=== PATIENT | male | born 1965 | race African-American/Black ===

== ENCOUNTER 2023-10-05 06:28 | Day surgery (SDC) | payer OTHER, SELFPAY ==
[2023-10-05 08:26] LABS: Glucose - Point of Care 121 mg/dl (70-99)
== END 2023-10-10 01:00 ==
LOC: GI 06:28
PROVIDERS: ATTENDING PHYSICIAN Internal Medicine Gastroenterology; FAMILY PHYSICIAN Family Medicine
DX: I85.00 Esophageal varices without bleeding (principal)
CPT/HCPCS: 43235; 82962

== ENCOUNTER → 2023-10-12 08:53 | Outpatient (REF) | payer OTHER, SELFPAY | LOC: HWRAD 08:53 | PROVIDERS: ATTENDING PHYSICIAN Internal Medicine Gastroenterology; FAMILY PHYSICIAN Family Medicine | DX: K70.30 Alcoholic cirrhosis of liver without ascites (principal) | CPT/HCPCS: 76700 ==

== ENCOUNTER 2024-04-03 07:44 | Inpatient (IN) | payer OTHER, SELFPAY ==
[2024-04-03] VITALS (33 sets, daily range): BP systolic 100–145; BP diastolic 54–105; BMI 27.1; BMI 27.2
[2024-04-03 04:42] LABS: Glucose - Point of Care 471 mg/dl (70-99)
[2024-04-03 05:01] LABS: Venous Blood Gas B.E. -8.5 mmol/L (-4 to +4); Venous Blood Gas HCO3 15.2 mmol/L (22-27); Venous Blood Gas O2 Sat % 99.1 %; Venous Blood Gas pCO2 24 mmHg (35-48); Venous Blood Gas pH 7.41 (7.32-7.43); Venous Blood Gas pO2 118 mmHg (30-50)
[2024-04-03 05:02] LABS: ALT (SGPT) 34 U/L (0-50); AST (SGOT) 42 U/L (17-59); Albumin 2.9 g/dl (3.5-5.0); Alkaline Phosphatase 43 U/L (38-126); Blood Urea Nitrogen 34 mg/dl (9-20); Calcium 8.3 mg/dl (8.4-10.2); Carbon Dioxide 14 mmol/L (22-30); Chloride 106 mmol/L (98-107); Direct Bilirubin 0.2 mg/dl (0.0-0.4); Estimated Creatinine Clearance 87 ml/min; Glucose 429 mg/dl (70-99); Potassium 4.3 mmol/L (3.5-5.1); Sodium 135 mmol/L (135-145); Total Bilirubin 0.6 mg/dl (0.2-1.3); Total Protein 5.9 g/dl (6.3-8.2); eGFR > 60.00
[2024-04-03 05:03] LABS: INR 1.52; PT 18.4 Sec (11.4-14.6)
[2024-04-03 05:04] LABS: APTT 28.5 Sec (23.4-35.0)
[2024-04-03 05:12] LABS: Urine Albumin Negative (Neg - Trace); Urine Bilirubin Negative (Negative); Urine Character Clear (Clear); Urine Color Yellow; Urine Glucose 3+ (Negative); Urine Ketone 1+ (Negative); Urine Leukocyte Negative (Negative); Urine Nitrite Negative (Negative); Urine Occult Blood Negative (Negative); Urine Specific Gravity 1.015 (<1.030); Urine Urobilinogen Negative (Neg - 1+)
[2024-04-03] MEDS: NSS 1000 IV ×2 (05:17→05:19)
[2024-04-03 05:18] LABS: % Basophils 0.3 % (0-2); % Eosinophils 0.8 % (0-6); % Immature Granulocytes 2.1 % (0-0.5); % Lymphocytes 25.8 % (20.5-51.1); % Monocytes 9.6 % (1.7-9.3); % Neutrophils 61.4 % (42.2-75.2); Absolute Eosinophils 0.1 10^3/uL (0-0.7); Absolute Immature Granulocytes 0.2 10^3/uL (0-0.05); Absolute Lymphocytes 2.3 10^3/uL (1.2-3.4); Absolute Monocytes 0.9 10^3/uL (0.1-0.6); Absolute Neutrophils 5.4 10^3/uL (1.4-6.5); Hematocrit 18.3 % (39.0-52.0); Hemoglobin 6.4 g/dL (13.0-18.0); Mean Corpuscular Hgb 30.6 pg (27.0-31.0); Mean Corpuscular Volume 87.6 fL (80.0-94.0); Mean Platelet Volume 12.4 fL (7.4-10.4); Nucleated Red Blood Cells % 1.6 % (-); Platelet Count 115 10^3/uL (130-400); Red Blood Cell Count 2.09 10^6/uL (4.70-6.10); Red Cell Dist. Width 14.2 % (11.5-14.5); White Blood Cell Count 8.9 10^3/uL (4.8-10.8)
[2024-04-03] MEDS: PROTONIX IV 80 MG IV (05:18)
[2024-04-03] MEDS: SANDOSTATIN 50 MCG IV (05:18)
[2024-04-03] MEDS: PROTONIX 100 IV (05:18)
[2024-04-03 05:34] LABS: Alcohol None Detected
[2024-04-03 05:37] LABS: B-Hydroxybutyrate 0.48 mmol/L (0.02-0.27); Lactic Acid 6.5 mmol/L (0.7-2.0)
--- NOTE | 2024-04-03 06:00 | ED.GENMED ---
History of Present Illness
General
Chief Complaint: Vomiting Blood
Source: patient and previous hospital records (Previous hospitalization for similar event October 2021. Multiple previous upper endoscopies most recently October 2023 showing grade 1 small esophageal varices.)
Exam Limitations: none
Time Seen by Provider: 04/03/24 04:46
Nursing documentation reviewed up to this point in time: agreed with
History of Present Illness
History of Present Illness:
This is a 58-year-old gentleman with history of prior alcohol abuse, cirrhosis, esophageal varices with previous esophageal bleeding, significant anemia requiring blood transfusions and hospitalization July 2022. He also has history of HIV,
adult onset diabetes. During hospitalization July 2022 he was started on insulin but admits to poor compliance with follow-up with PCP, had not been using glucometer but did continue insulin regimen that was initiated July 2022 until he
stopped all of his medications in January of this year.
He has been compliant with GI, follow-up surveillance endoscopies most recently October 2023 showing grade 1 small esophageal varices, nonbleeding. Unfortunately due to stress and other issues he discontinued all of his medications January of this year
taking a 'drug holiday'
He admits to sporadic alcohol use, last consumption a few days ago.
He complains of passing black tarry stools 2 days ago with onset of lightheadedness/dizziness yesterday while at work causing him to leave work early then this morning he began vomiting bright red blood. 2 episodes.
He admits to mild upper abdominal discomfort but denies chest pain. Lightheadedness with standing persists but no syncopal episodes.
He takes no anticoagulants nor NSAIDs.
Past History
Past History
ED Past Medical History: IDDM, Other (HIV) and Other (Cirrhosis, esophageal varices, GI bleed)
ED Past Surgical History: Other
Social History
Tobacco: Other
Alcohol: Occasional
Drug: None
Personal: Partner
Living: with family
Employment: Employed
Family History
Family History: Unable to obtain
Phy Exam
Physical Exam
Physical Exam:
GENERAL: 58-year-old gentleman appears his stated age, awake, very minimally drowsy but oriented x 3 and easily communicative. Mildly to moderately ill in appearance.
EYE: pupils equal and reactive. anicteric. Conjunctiva are significantly pale.
NECK: Supple, nontender, no meningismus, no significant adenopathy. No JVD.
ENT: posterior pharynx is clear, oral mucosa is mildly dry. No rhinorrhea.
CARDIAC: Regular rhythm, tachycardic. no murmur.
LUNGS: Clear breath sounds bilaterally, no acute respiratory distress, no wheezes/rales/rhonchi
ABDOMEN: Rotund, soft, nondistended, without focal tenderness, no r/g, no cvat. normoactive BS. Rectal exam reveals black pasty stool per rectum that is heme positive.
NEUROLOGICAL: Alert and oriented x3, no focal neuro deficits.
SKIN: Warm and dry, moderately pale in color, skin intact. No rash.
MUSCULOSKELETAL: No C/C/E. peripheral pulses are full and equal b/l. No palpable tenderness.
PSYCH: Mildly blunted affect.
Course
Orders/Labs/Results
Orders:
Orders
04/03/24 04:27
Type+Screen Urgent
Complete Blood Count/With Diff Urgent
Comprehensive Metabolic Panel Urgent
Direct Bilirubin Urgent
PTT Urgent
Prothrombin Time Urgent
04/03/24 04:38
EKG [Electrocardiogram (*1)] Urgent
Reason for Study: Tachycardia
EKG- Treatment ONCE
04/03/24 04:49
0.9% Sodium Chloride 1000 ml [Nss] 1,000 ml IV BOLUS
Pantoprazole 80 mg/100 ml Nss [Protonix] 80 mg in 100 ml IV NOW
Pantoprazole [Protonix IV] 80 mg IV NOW STA
04/03/24 04:50
Octreotide [Sandostatin] 50 mcg IV NOW STA
04/03/24 04:52
Alcohol Urgent
B-Hydroxybutyrate Urgent
Lactic Acid Urgent
Venous Blood Gas Urgent
%Oxygen/Room Air: 100
04/03/24 04:56
Urinalysis Reflex To Culture Urgent
Date Specimen was Collected: 04/03/24
Time Specimen was Collected: 04:56
04/03/24 05:01
Add On- LAB Urgent
Comments:: add on serum alcohol
Tests Added?: serum ETOH
04/03/24 05:02
0.9% Sodium Chloride 1000 ml [Nss] 1,000 ml IV BOLUS
04/03/24 05:50
* Blood Bank Products Urgent
Blood Bank Products: *Packed RBC Leuko(PRBC's)
Quantity: 3
Transfuse Today: Yes
Reason: Bleeding
Patient will require pre-treatment for transfusion:: No
Octreotide Acetate [Sandostatin] 600 mcg 0.9% Sodium Chloride 500 ml [Nss] 500 ml IV NOW
04/03/24 05:57
Bedside Glucose- Treatment Q1H
IV Insert/Care/Rem.- Treatment PRN
Insulin Human Regular [Novolin R] 5 units IV NOW STA
Reg Insulin 100 Units/100 ml [Novolin R Insulin Infusion] 100 units in 100 ml IV NOW
04/03/24 06:00
Basic Metabolic Panel Q2H
Flush (0.9% Sodium Chloride) [Flush (Nss)] See Dose Instructions IV PER PROTOCOL
04/03/24 08:00
Basic Metabolic Panel Q2H
04/03/24 10:00
Basic Metabolic Panel Q2H
Abnormal Lab Results
04/03/24 04/03/24 04/03/24
04:27 04:41 04:52
RBC 2.09 L 10^6/uL
(4.70-6.10)
Hgb 6.4 L* g/dL
(13.0-18.0)
Hct 18.3 L* %
(39.0-52.0)
Plt Count 115 L 10^3/uL
(130-400)
MPV 12.4 H fL
(7.4-10.4)
Abs Immat Gran (auto) 0.2 H 10^3/uL
(0-0.05)
Absolute Monos (auto) 0.9 H 10^3/uL
(0.1-0.6)
Immature Gran % 2.1 H %
(0-0.5)
Monocytes % 9.6 H %
(1.7-9.3)
PT 18.4 H Sec
(11.4-14.6)
VBG pCO2 24 L mmHg
(35-48)
VBG pO2 118 H mmHg
(30-50)
VBG HCO3 15.2 L mmol/L
(22-27)
Carbon Dioxide 14 L* mmol/L
(22-30)
BUN 34 H mg/dl
(9-20)
Glucose 429 H mg/dl
(70-99)
Lactic Acid 6.5 H* mmol/L
(0.7-2.0)
Calcium 8.3 L mg/dl
(8.4-10.2)
Total Protein 5.9 L g/dl
(6.3-8.2)
Albumin 2.9 L g/dl
(3.5-5.0)
Urine Ketones
Urine Glucose
B-Hydroxybutyrate 0.48 H mmol/L
(0.02-0.27)
POC Glucose 471 H* mg/dl
(70-99)
04/03/24
04:56
RBC
Hgb
Hct
Plt Count
MPV
Abs Immat Gran (auto)
Absolute Monos (auto)
Immature Gran %
Monocytes %
PT
VBG pCO2
VBG pO2
VBG HCO3
Carbon Dioxide
BUN
Glucose
Lactic Acid
Calcium
Total Protein
Albumin
Urine Ketones 1+ A
(Negative)
Urine Glucose 3+ A
(Negative)
B-Hydroxybutyrate
POC Glucose
04/03/24 04:27
Vital Signs
Initial and Last Documented VS:
Initial Vital Signs
Temp Pulse Resp BP Pulse Ox
98.1 F 126 15 105/54 100
04/03/24 04:19 04/03/24 04:19 04/03/24 04:19 04/03/24 04:19 04/03/24 04:19
Last Documented Vital Signs
Temp Pulse Resp BP Pulse Ox
98.1 F 123 17 119/71 97
04/03/24 04:19 04/03/24 05:30 04/03/24 05:30 04/03/24 05:30 04/03/24 05:30
MDM/Problems Addressed
Differential Diagnosis Includes:
Significant concern for esophageal variceal bleeding, acute blood loss anemia with concern for symptomatic anemia.
As patient discontinued his insulin several months ago, Accu-Chek reads high, concern for DKA, electrolyte abnormality, dehydration/acute kidney injury.
Blood pressure is mildly soft, sinus tachycardia noted but no respiratory distress nor tachypnea.
Will initiate IV fluid resuscitation, IV Protonix bolus and drip as well as IV octreotide bolus and drip.
Will type and screen and blood consent has been obtained.
Will consider IV insulin drip, bicarb drip depending on lab results.
Will plan to admit to hospitalist service, ICU and plan for GI consult.
Chronic conditions affecting care: DM, Immunosuppressed (HIV positive. Has stopped Biktarvy several months ago. ) and Other (Cirrhosis, esophageal varices)
Acute Exacerbation and/or Progression of Chronic Illness: DM and Other (Esophageal varices)
*Pulse Oximetry
Patient hypoxic: no
*EKG
Interpreted by ED Provider?: Yes
Interpretation: abnormal
Comparison EKG: no changes (Unchanged from previous July 2022)
Rate: tachycardiac
Rhythm: sinus
Lyons: left axis deviation
Interval: normal interval
QRS Pattern: normal QRS
Ischemia: non-specific ST changes
*Smoking Tobacco Packing Machine Hand Interpretation
Rate: tachycardiac
Interpretation: abnormal
Rhythm: sinus
*Critical Care Note
Total Time (30-74mins, 75-104mins- exclusive of procedures): 50
comment:
Critical care statement: A total of 50 minutes of critical care time was provided for this patient. This includes management of unstable vital signs, evaluation of the patient at bedside, reviewing the patient's pertinent medical records, discussion
with consultants, review of old EKGs and review of pertinent medical records. This time with separate from time utilized to perform the aforementioned documented procedures
ED Attending Note
-
Portions of this chart may have been created with voice recognition software.� Occasional wrong word or��sound alike� substitutions may have occurred due to the inherent limitations of voice recognition software.
Discharge Plan
Departure
Patient Disposition: Admit
Date of Disposition: 04/03/24
Time of Disposition: 05:56
Admit to: ICU
Admit to doctor: Solo
Presentation/result/management discussed w/ accepting MD/DO: Hospitalist
Discharge Problem:
Acute upper gastrointestinal bleeding, Esophageal varices, severe symptomatic anemia, DKA, type 2, Hypovolemic shock
Prescriptions:
No Action
rosuvastatin 10 mg tablet
10 mg PO HS
Patient Comments:
pt reports no medications since January 2024
Biktarvy 50-200-25 mg tablet
1 tab PO DAILY
Patient Comments:
pt reports no medications since January 2024
(DME) OneTouch Verio test strips Strip
Qty: 200 0RF
Rx Instructions:
As Directed
(DME) lancets [OneTouch Delica Lancets] 30 gauge Misc
Qty: 200 0RF
Rx Instructions:
As Directed
metformin 1,000 mg Tablet
1,000 mg PO BID@0800,1700 Qty: 60 0RF
Patient Comments:
pt reports no medications since January 2024
insulin aspart U-100 [Novolog FlexPen U-100 Insulin] 100 unit/mL (3 mL) Insulin Pen
7 unit SC AC Qty: 5 0RF
Patient Comments:
pt reports no medications since January 2024
insulin glargine [Lantus Solostar U-100 Insulin] 100 unit/mL (3 mL) Insulin Pen
12 unit SC HS Qty: 5 0RF
Patient Comments:
pt reports no medications since January 2024
(DME) pen needle, diabetic [BD Ultra-Fine Jailene Pen Needle] 32 gauge x 5/32' Needle
Qty: 200 0RF
Rx Instructions:
As Directed
nadolol 20 mg Tablet
20 mg PO DAILY Qty: 30 0RF
Patient Comments:
pt reports no medications since January 2024
pantoprazole 40 mg Tablet,Delayed Release (Dr/Ec)
40 mg PO BID Qty: 60 0RF
Patient Comments:
pt reports no medications since January 2024
Referrals:
Lico Kinney MD [Family Provider] -
Interventions
Interventions:
*Risk Screen - Suicide Last Done: 04/03/24 04:19
*General Assessment Last Done: 04/03/24 04:19
*Neglect/Abuse Screening Last Done: 04/03/24 04:19
ED- Fall Risk Assessment Last Done: 04/03/24 04:32
*ED COVID-19 Vaccine History Last Done: 04/03/24 04:32
GO-Qtgwoe-Xuarbnjiny Assessment Last Done: 04/03/24 04:32
ED- Cardiac Assessment Last Done: 04/03/24 04:32
ED- Pulmonary Assessment Last Done: 04/03/24 04:32
Discharge Date and Time
Print Language: MALTESE
[2024-04-03] MEDS: SANDOSTATIN 500.6 MCG IV ×2 (06:14→18:40)
[2024-04-03 06:28] LABS: Glucose - Point of Care 409 mg/dl (70-99)
--- NOTE | 2024-04-03 06:29 | HPS.HSE ---
Family Physician
-
Family Physician: Lico Kinney
Chief Complaint
-
Hematemesis
History of Present Illness
Patient is a 58y M with PMH significant for alcoholic cirrhosis with varices, HIV positivity and DM-II who presents to ED complaining of throwing up blood early this AM. Patient states that he has felt poorly for much of this week. On Sunday he
started with symptoms of fatigue and occasional lightheadedness - mostly with standing. He had poor appetite / PO intake. On Sunday he noted dizziness and increased fatigue. He had black stools on Sunday and Sunday. He began to experience
shortness of breath with activity and 'flushed' feeling. Patient woke early this AM to use the bathroom and became nauseated. He had emesis that consisted of bright red blood. About one hour later he had a second episode of bloody emesis.
Patient estimates that he may have thrown up about 1 pint of bloody emesis in total.
He denies any chest pain, abdominal pain, fevers or chills.
Patient presented to the ED for further evaluation and treatment. No additional episodes of hematemesis since arrival here.
Medical History
Past Medical History
Past Medical History: Reports Other
Additional Past Medical History:
Alcoholic Cirrhosis with Varices
HIV Positive
DM-II
Hypertension
Past Surgical History: Reports Other
Additional Past Surgical History:
Hernia Repair
EGD with Variceal Banding (2021)
Social History
Tobacco: Smoker (Current every day smoker. 1/2ppd at present. Approx 30 pack years total use.)
Alcohol: Occasional (Still occasional alcohol. Last drink was glass of wine on Sunday.)
Drug: Former User (History of crack cocaine use, THC, etc - many years since last use. No history of IVDA.)
Family History
Family History: Diabetes and Other (Brother: Prostate Cancer)
Allergies / Home Medications
Allergies reflects when Allergies were last updated in [facility].
Home Medications with original date entered in [facility]
Allergy/Medication List:
Allergies
Allergy/AdvReac Type Severity Reaction Status Date / Time
aspirin Allergy Unknown Unknown Verified 08/21/22 14:51
Penicillins Allergy Unknown Unknown Verified 08/21/22 14:51
Home Medications
bictegravir 50 mg-emtricitabine 200 mg-tenofovir alafenam 25 mg tablet (Biktarvy) 1 tab PO DAILY Infection 07/31/22
rosuvastatin 10 mg tablet 10 mg PO HS 07/31/22
blood sugar diagnostic (Allylix Verio test strips) #200 ea 08/04/22
insulin aspart U-100 100 unit/mL (3 mL) subcutaneous pen (Novolog FlexPen U-100 Insulin aspart) 7 unit (0.07 mL) SC AC #5 ea 08/04/22
insulin glargine 100 unit/mL (3 mL) subcutaneous pen (Lantus Solostar U-100 Insulin) 12 unit (0.12 mL) SC HS #5 ea 08/04/22
lancets 30 gauge (Allylix DelFlavours Lancets) #200 ea 08/04/22
metformin 1,000 mg tablet 1,000 mg PO BID@0800,1700 #60 tabs 08/04/22
nadolol 20 mg tablet 20 mg PO DAILY #30 tabs 08/04/22
pantoprazole 40 mg tablet,delayed release 40 mg PO BID #60 tabs 08/04/22
pen needle, diabetic 32 gauge x ' (BD Ultra-Fine Jailene Pen Needle) #200 ea 08/04/22
These are patient's prescribed medications for reference. He has been taking no medications since January.
Review of Systems
-
History Source: Patient
A 12 point ROS was completed and negative except as noted: Yes
Constitutional: Reports Fatigue; Denies Fever or Chills
EENT: Denies Sore Throat
Respiratory: Reports Trouble Breathing; Denies Cough
Cardiac: Denies Chest Pain or Palpitations
Abdomen/GI: Reports Nausea, Vomiting, Black Stools and Anorexia; Denies Abdominal Pain, Diarrhea or Bloody Stools
: Denies Dysuria or Frequency
Musculoskeletal: Denies Joint Pain or Edema
Neurological: Reports Dizzy; Denies Headache
Psych: Denies Depression or Anxiety
Physical Exam
Vital Signs
Vital Signs
Temp Pulse Resp BP Pulse Ox
98.1 F 126 17 123/55 99
04/03/24 04:19 04/03/24 06:00 04/03/24 06:00 04/03/24 06:00 04/03/24 06:00
Physical Exam
General: Other (Pale appearing 58y M in no acute distress.)
HEENT: Other (Dry MM. Neck supple.)
Respiratory: Clear; No Wheezes, Rales or Rhonchi
Cardiac: S1/S2, Tachycardia and Murmur (II/ CHRISTIANNE)
GI: Soft, Non Tender, Non Distended and Normal Bowel Sounds
Musculoskeletal: No Clubbing, No Cyanosis and No Edema
Neuro: AO x 3
Laboratory Results
-
04/03/24 04:27
04/03/24 10:00
Laboratory Results
PT 18.4 Sec (11.4-14.6) H 04/03/24 04:27
INR 1.52 04/03/24 04:27
APTT 28.5 Sec (23.4-35.0) 04/03/24 04:27
Lactic Acid 6.5 mmol/L (0.7-2.0) H* 04/03/24 04:52
Total Bilirubin 0.6 mg/dl (0.2-1.3) 04/03/24 04:27
AST 42 U/L (17-59) 04/03/24 04:27
ALT 34 U/L (0-50) 04/03/24 04:27
Alkaline Phosphatase 43 U/L (38-126) 04/03/24 04:27
Impression/Plan
-
A/P: Patient is a 58y M with PMH significant for alcoholic cirrhosis,HIV positivity and DM-II who presents to ED for evaluation of hematemesis early this AM.
UGIB
Alcoholic Cirrhosis with Varices and Thrombocytopenia
Acute Blood Loss Anemia secondary to the above
- Admit to ICU for further evaluation and treatment.
- Aggressive IVF support. Blood product support (PRBCs ordered in the ED).
- IV PPI and IV octreotide.
- IV ceftriaxone.
- GI evaluation for probable EGD.
- Follow for any further episodes of bleeding.
- Resume prior meds including nadolol once OK for PO intake.
Lactic Acidosis
- Likely secondary to volume losses / UGIB.
- Aggressive volume resuscitation as noted above.
- Follow serial labs / lactate for improvement.
DM-II, Uncontrolled
- Likely secondary to acute illness + being off of meds for months.
- Minimal elevation in anion gap (15) and minimal elevation in B-OH.
- Basal : bolus insulin.
- Follow glucose and cover with SSI as needed.
- Follow serial labs.
- Consider insulin infusion, but suspect glucose will improve with SQ insulin and aggressive volume replacement.
HIV Positive
- Off of medications (Biktarvy) since January.
- Check CD4 counts.
- ID evaluation.
- May need prophylaxis depending on CD4 counts.
DVT Prophylaxis: SCDs
Code Status: Full
[2024-04-03] MEDS: NOVOLIN R 5 UNITS IV (06:35)
[2024-04-03 08:06] LABS: Glucose - Point of Care 394 mg/dl (70-99)
--- NOTE | 2024-04-03 08:39 | CON.GI ---
Addendum entered and electronically signed by Ilsa Nieves Do, MD 04/03/24 10:02:
I saw and examined the patient.
The WELDER AND FITTER's note was reviewed and I agree with the note.
Comment: Chandan is a 58yo M with h/o HIV, DEV and ETOH cirrhosis with remote variceal bleeding 07/2022 who was admitted with hematemesis. No clear triggers. Still drinking ETOH last Sunday. Denies abd pain, nausea/vomiting currently. No AC or
chronic NSAID use. Vitals temp 99F tachy to 120s BP 110s systolic. soft, ND, NTTP non toxic appearing. Labs reviewed.
Impression
- Hematemesis
Suspect variceal bleeding. Remote history of same in 2021
Less likely hiatal hernia, MWT or esophagitis given hemodynamic changes
- Cirrhosis
- Lactic acidosis
- Ongoing ETOH intake
- HTN
- Anemia
- DM
- Hyperlipidemia
Recommendations
- IV PPI and octreotide
- Cipro Q24H to prevent gut bacterial translocation during variceal bleeding
- NPO ok for meds
- Plan for urgent EGD today with possible banding
- Hold on nadolol for now given mild hypotension
- Counseled on ETOH cessation
- Large bore IVs and serial H/H
- Recommend abd US
Will follow with you
Original Note:
Consultation
-
Date/Time Consultation Requested: 04/03/24814
Date/Time Consultation Performed: 04/03/24839
Requesting Provider: Mikel Banda DO
Performing Provider: GAL Wilhelm, Ilsa Manning MD
Reason for Consultation: hematemesis
Medical History
Chief Complaint / HPI
Chief Complaint: hematemesis
History of Present Illness:
58 yo M pmh hep B (not on meds thought via sexual transmission iwth prior hep B core +, s AG/AB neg with detected VL<10), HIV (on Bitarvy), DEV, hyperlipidemia, HTN, regular EtOH use with ETOH cirrhosis and prior EV bleeding/MW tear with banding in
July 2022 and remains on Nadolol. Since that time he has had routine follow up with Dr. Zimmerman and last with Rose Altman in 12/2023. He also Dr. Hilton at [facility] [place] in 2022 with concern for possible acute ETOH hepatitis with
decompensation. He has had several EGD since bleeding with noted noted grade I EV in August 2022 and julien with nystatin treatment. December 2022 + MARTIN with Fluconazole treatment then EGD 10/27 with grade I varices no julien seen and repeat EGD 6-12
months. He now presents with 2 episodes vomiting blood about 1 pint total blood. On admission noted with hbg 6.4, Platelets 115, Co2 14, glucose 429, lactate 6.5, albumin 2.9, INR 1.5. Pt also noted with tachycardia and mild hypotension.
Pt current admits to vomiting blood and mild GERD this summer but denies dysphagia, odynophagia, abdominal pain, distention, confusion, blood or black in stools. Hx cologuard fall 2021. No Anticoagulation or NSAID use.
Past Medical History
Past Medical History: HTN, Hypercholesterolemia, NIDDM and Other (hep B not on medication chronic carrier, HIV on Biktavy, ETOH cirrhosis without ascites and hx esophageal variceal bleeding, julien esophagitis, tobacco abuse)
Past Surgical History: Other (hernia)
Social History
Tobacco: Smoker
Alcohol: Occasional (2-3 drinks several times per week )
Drug: None
Personal: Partner
Living: With Family
Employment: Employed
Family History
Family History: Other (father colon CA , son crohns, brother esophageal CA)
Allergies / Home Medications
Allergy/AdvReac Type Severity Reaction Status Date / Time
aspirin Allergy Unknown Unknown Verified 08/21/22 14:51
Penicillins Allergy Unknown Unknown Verified 08/21/22 14:51
�Medication �Instructions �Recorded
bictegravir 50 mg-emtricitabine 1 tab PO DAILY Infection 07/31/22
200 mg-tenofovir alafenam 25 mg
tablet (Biktarvy)
rosuvastatin 10 mg tablet 10 mg PO HS 07/31/22
insulin aspart U-100 100 unit/mL 7 unit (0.07 mL) SC AC #5 ea 08/04/22
(3 mL) subcutaneous pen (Novolog
FlexPen U-100 Insulin aspart)
insulin glargine 100 unit/mL (3 12 unit (0.12 mL) SC HS #5 ea 08/04/22
mL) subcutaneous pen (Lantus
Solostar U-100 Insulin)
metformin 1,000 mg tablet 1,000 mg PO BID@0800,1700 #60 tabs 08/04/22
nadolol 20 mg tablet 20 mg PO DAILY #30 tabs 08/04/22
pantoprazole 40 mg tablet,delayed 40 mg PO BID #60 tabs 08/04/22
release
Review of Systems
-
History Source: Patient
Constitutional: Reports Fatigue
EENT: Reports No Symptoms
Respiratory: Reports Trouble Breathing
Cardiac: Reports No Symptoms
Abdomen/GI: Reports Nausea and Vomiting (hematemesis )
: Reports No Symptoms
Musculoskeletal: Reports No Symptoms
Skin: Reports No Symptoms
Neurological: Reports Dizzy and Weakness
Endocrine: Reports No Symptoms
Hematologic/Lymphatic: Reports Bleeding
Vital Signs
Temp Pulse Resp BP Pulse Ox
98.8 F 128 17 109/66 100
04/03/24 08:16 04/03/24 08:30 04/03/24 08:30 04/03/24 08:30 04/03/24 07:30
Physical Exam
Exam
General: Well Developed, Well Nourished and No Apparent Distress
HEENT: Normocephalic and Anicteric
Respiratory: Clear
Cardiac: Other (tachy)
GI: Soft, Non Distended and Tender
Musculoskeletal: No Clubbing and No Cyanosis
Skin: Warm and Dry
Neuro: Awake, Alert and AO x 3
Psych: Calm
Results
WBC 8.9 10^3/uL (4.8-10.8) 04/03/24 04:27
Hgb 6.4 g/dL (13.0-18.0) L* 04/03/24 04:27
Hct 18.3 % (39.0-52.0) L* 04/03/24 04:27
MCV 87.6 fL (80.0-94.0) 04/03/24 04:27
Plt Count 115 10^3/uL (130-400) L 04/03/24 04:27
Absolute Neuts (auto) 5.4 10^3/uL (1.4-6.5) 04/03/24 04:27
PT 18.4 Sec (11.4-14.6) H 04/03/24 04:27
INR 1.52 04/03/24 04:27
APTT 28.5 Sec (23.4-35.0) 04/03/24 04:27
Sodium Cancelled 04/03/24 10:00
Potassium Cancelled 04/03/24 10:00
Chloride Cancelled 04/03/24 10:00
Carbon Dioxide Cancelled 04/03/24 10:00
BUN Cancelled 04/03/24 10:00
Creatinine Cancelled 04/03/24 10:00
Calcium Cancelled 04/03/24 10:00
Total Bilirubin 0.6 mg/dl (0.2-1.3) 04/03/24 04:27
AST 42 U/L (17-59) 04/03/24 04:27
ALT 34 U/L (0-50) 04/03/24 04:27
Alkaline Phosphatase 43 U/L (38-126) 04/03/24 04:27
Diagnostic Image Results:
10/2023 US abdomen
Mildly heterogeneous hepatic echotexture with subtle lobulated surface contour compatible with history of cirrhosis. No focal or suspicious lesions appreciated.
Prior GI Procedures:
PRIOR GI WORKUP:
Upper endoscopy July 31, 2022 which showed Rachel-Ruano tear. Grade 1 esophageal varices completely eradicated and banded. Hematin in the stomach. Normal duodenum.
Upper endoscopy Aug 2022 showed small grade 1 varices in the lower third esophagus diminutive in size. Multiple small plaques in the esophagus cells for cytology obtained. Straight mild erythema in the stomach. Duodenum normal. Path did show Julien
by fluconazole interacts with his medications so I prescribed him nystatin for his yeast.
Endoscopy December 2022 small varices, plaques in esophagus likely Julien brushings performed. Patchy moderate erythema in stomach biopsy taken. Duodenum normal. Pathology showed mild chronic inflammation. MARTIN positive for fungus. Repeat EGD 6-12 mo.
Endoscopy 10/05/23: small grade I esophageal varices in the lower third of the esophagus
Assessment / Plan
-
58 yo M pmh hep B (not on meds thought via sexual transmission iwth prior hep B core +, s AG/AB neg with detected VL<10), HIV (on Bitarvy), DEV, hyperlipidemia, HTN, regular EtOH use with ETOH cirrhosis and prior EV bleeding/MW tear with banding in
July 2022 and remains on Nadolol. Since that time he has had routine follow up with Dr. Zimmerman and last with Rose Altman in 12/2023. He also Dr. Hilton at [facility] [place] in 2022 with concern for possible acute ETOH hepatitis with decompensation
without further follow up. He has had several EGD since bleeding with noted noted grade I EV in August 2022 and julien with nystatin treatment. December 2022 + MARTIN with Fluconazole treatment then EGD 10/27 with grade I varices no julien seen and
repeat EGD 6-12 months. He now presents with 2 episodes vomiting blood about 1 pint total blood. On admission noted with hbg 6.4, Platelets 115, Co2 14, glucose 429, lactate 6.5, albumin 2.9, INR 1.5. Pt also noted with tachycardia and mild
hypotension.
-hematemesis with concern for recurrent EV bleeding
-symptomatic anemia
-tachycardia
-ETOH cirrhosis
-acidosis
-DM with marked elevated FBS on admission
-elevated lactate on admission
-ETOH use
other med problems:
-hx prior julien
-HIV on bitarvy
-hep B no meds
-DEV
-hyperlipidemia
-HTN
-family hx colon cA neg cologuard 2021
PLAN:
etiology of hematemesis related to recurrent EV bleed, portal gastropathy, MW tear vs other
plan for transfusion-- do not overtransfuse
EGD today
will give dose reglan now
NPO
PPI/octreotide gtt
reviewed antibiotics with pharmacy -- pt was given Ceftriaxone after reported allergy ok to give increased to 2 grams
DM management per candy department manager team
cont to trend lactic acid
stressed to pt must quit ETOH
monitor for withdrawal
MELD 3.0 13
OP follow up with Dr. Zimmerman
Need OP follow up with ID with HIV and hep B history
pt should consider colonoscopy with family hx colon CA instead of cologuard screening
-
-
Thank you for consultation and allowing me to participate in the patient's care. Please call the accountant controller GI physician during the after hours with any questions or concerns.
[2024-04-03 09:12] LABS: Glucose - Point of Care 377 mg/dl (70-99)
[2024-04-03] MEDS: LR IV ×4 (09:28→13:08)
[2024-04-03] MEDS: SANDOSTATIN IV (09:43)
[2024-04-03] MEDS: ROCEPHIN 2000 MG IV (09:44)
[2024-04-03] MEDS: FLUSH (NSS) IV (09:44)
[2024-04-03] MEDS: STERILE WATER FOR INJECTION 10 ML IV (09:45)
[2024-04-03] MEDS: REGLAN 10 MG IV (09:53)
[2024-04-03] MEDS: FLUSH (NSS) 1 FLUSH IV (09:57)
[2024-04-03] MEDS: STERILE WATER FOR INJECTION 20 ML IV (09:57)
[2024-04-03] MEDS: NOVOLIN R 8 UNITS IV (10:14)
[2024-04-03] MEDS: NOVOLIN R INSULIN INFUSION 100 IV (10:16)
[2024-04-03 10:24] LABS: Glucose - Point of Care 357 mg/dl (70-99)
--- NOTE | 2024-04-03 10:44 | PTCARENOTE ---
Pt admitted to ICU bed 3366 at 0800. Pt AAOx3. Sinus tach. BP stable. Denies pain or nausea. No episodes of vomiting this am. No BM. Protonix and Sandostatin gtts infusing per order. 1 unit of PRBC given. No s/s transfusion reaction noted.
Insulin gtt started per protocol. Pt transferred to GI lab.
--- NOTE | 2024-04-03 11:40 | PN.DE.MGMTRT ---
Insulin Management
- -
04/03/2024 Diabetes Management Consult
Patient admitted 04/03 vomiting blood, Hx of esophageal varices. PMH Prior alcohol abuse, cirrhosis, esophageal varices, anemia, HIV, type 2 diabetes requiring insulin. A1C is pending. Prior to admission was taking no diabetes medications since
January 2024, ordered Lantus 12 units @ HS with Humalog 7 units AC.
Patient is awake alert and oriented, states he took a 'medication vacation' and stopped his insulin and all other medications.
Glucose on admission 409 POC and 429 venous. Patient leaving unit for endoscopy.
Insulin infusion to start. Will follow for readiness to transition from IV insulin to Lantus and novolog
Diabetes History
- -
Type of Diabetes: 2 requiring insulin
Pre-Admission Diabetes Regimen
04/03/24 04/03/24 04/03/24
04:27 06:15 08:00
Creatinine 1.0 Cancelled Cancelled
04/03/24
10:00
Creatinine Cancelled
Insulin Pump Settings
IP Diabetes Regimen
04/03/24 04/03/24 04/03/24
04:27 04:41 06:15
Glucose 429 H Cancelled
POC Glucose 471 H*
04/03/24 04/03/24 04/03/24
06:26 07:55 08:00
Glucose Cancelled
POC Glucose 409 H 394 H
04/03/24 04/03/24 04/03/24
09:01 10:00 10:13
Glucose Cancelled
POC Glucose 377 H 357 H
Patient Education
[2024-04-03 11:54] LABS: Glucose - Point of Care 274 mg/dl (70-99)
[2024-04-03 12:36] LABS: Hematocrit 19.6 % (39.0-52.0); Hemoglobin 6.9 g/dL (13.0-18.0)
--- NOTE | 2024-04-03 12:36 | CM ---
CM following re: discharge planning.
Discussed in Rounds, reviewed pt's chart, met with pt.
Pt is a 58 year old male, admitted with primary dx of UGIB. Alcoholic Cirrhosis with Varices and Thrombocytopenia. Acute Blood Loss Anemia.
Pt reports he lives with a partner in a 2SH, 1 step to enter. Pt described himself as independent in all areas UNDER TRIMMER.No DME, VN or SNF history.
PCP: Nawaf Kinney
Pharmacy: [facility]
D/C plan: home with anticipated no needs. Partner to transport home at discharge.
CM will follow with discharge plan updates as hospitalization progresses
[2024-04-03 12:38] LABS: Lactic Acid 2.2 mmol/L (0.7-2.0)
[2024-04-03] MEDS: NSS (PRESERVATIVE FREE) 10 ML IV ×2 (12:56→19:50)
[2024-04-03] MEDS: PROTONIX IV 40 MG IV ×2 (12:56→19:50)
[2024-04-03 13:06] LABS: Glycohemoglobin (HgbA1c) 8.9 % (4.0-5.6)
[2024-04-03 13:07] LABS: Glucose - Point of Care 238 mg/dl (70-99)
--- NOTE | 2024-04-03 13:34 | CON.INTV ---
Consultation
Consultation Request
Date/Time Consultation Requested: 04/03/2024
Date/Time Consultation Performed: 04/03/2024
Requesting Provider: Dr. Manning
Performing Provider: Dr. Mars Balderrama
Reason for Consultation: Upper GI bleed/hyperglycemia crisis
Medical History
-
History of Present Illness:
58-year-old man with past medical history significant for alcoholic cirrhosis with varices with prior banding, HIV positive, type 2 diabetes who presented to the emergency room complaining of throwing up blood the morning of admission. He was
admitted to the hospital on 04/03/2024. Has not been feeling well for about a week. Reports fatigue and occasional lightheadedness. Has reported decreased p.o. intake. Does report some black stools the last few days. Emesis consisted of bright
red blood. He estimated prior to arrival about a pint of blood emesis.
Apparently he has not been compliant with HIV medications or diabetes.
He also presented with hyperglycemia over 200.
Past Medical History
Past Medical History: Other (See assessment and plan)
Social History
Tobacco: Smoker (23-zezl-rbve history-half a pack per day currently.)
Alcohol: Other (Continues to occasionally drink. Last glass of wine on Sunday.)
Drug: Former User (Prior history of crack cocaine and marijuana use.)
Family History
Family History: Reviewed & Not Pertinent
Allergies / Home Medications
Allergies
Allergy/AdvReac Type Severity Reaction Status Date / Time
aspirin Allergy Unknown Unknown Verified 08/21/22 14:51
Penicillins Allergy Unknown Unknown Verified 08/21/22 14:51
Home Medications
�Medication �Instructions �Recorded �Confirmed �Last Taken �Type
bictegravir 50 mg-emtricitabine 1 tab PO DAILY Infection 07/31/22 04/03/24 01/05/24 History
200 mg-tenofovir alafenam 25 mg
tablet (Biktarvy)
insulin glargine 100 unit/mL (3 12 unit (0.12 mL) SC HS #5 ea 08/04/22 04/03/24 01/05/24 Rx
mL) subcutaneous pen (Lantus
Solostar U-100 Insulin)
hydrochlorothiazide 25 mg tablet 25 mg PO DAILY 04/03/24 04/03/24 Unknown History
insulin lispro 100 unit/mL 7 sliding scale dose SC AC 04/03/24 04/03/24 01/05/24 History
subcutaneous pen
lisinopril 10 mg tablet 10 mg PO DAILY 04/03/24 04/03/24 Unknown History
nadolol 20 mg tablet 40 mg PO DAILY 04/03/24 04/03/24 01/05/24 History
rosuvastatin 5 mg tablet 5 mg PO QPM 04/03/24 04/03/24 01/05/24 History
Review of Systems
-
History Source: Patient
All other systems: Negative unless noted
Vitals / Labs / Diagnostic Testing
Vital Signs
Temp Pulse Resp BP Pulse Ox
98.8 F 118 18 126/73 100
04/03/24 12:56 04/03/24 12:56 04/03/24 12:56 04/03/24 12:56 04/03/24 07:30
Laboratory Results
04/03/24
04:27
PT 18.4 H
INR 1.52
APTT 28.5
Diagnostic Testing:
Physical Exam
-
HEENT: Normocephalic
Cardiovascular: S1/S2
Respiratory: Clear and Non-Labored Respirations
GI: Soft, Non Distended and Non Tender
Neurology: Awake, Alert, Oriented and No Motor Deficits
Skin: Warm
General: Comfortable
Assessment
-
Upper GI bleed: Likely variceal bleed.
Acute blood loss anemia hemoglobin 6.4 on admission-symptomatic
Hyperglycemia-likely noncompliant
Conditions present prior admission:
Liver cirrhosis from alcohol abuse
Prior esophageal varices
Tobacco abuse
HIV positive
Type 2 diabetes
Hypertension
EGD with variceal banding 2021
Assessment and plan:
Critically ill, transferred to the critical care unit. Status post IV fluid resuscitation metabolic acidosis.
-
Ongoing transfusion:
Follow H&H-will continue to transfuse as necessary.
For EGD emergently today: Grade 2 esophageal varices banded x 3. Large amount of dark hematin in gastric body. Normal duodenum. No specimens collected.
Octreotide drip
PPI twice daily IV
Prophylactic antibiotic for 5 days-ceftriaxone. SBP prophylaxis
N.p.o. for now
-
Hyperglycemia: Will start insulin drip per protocol
Frequent Accu-Cheks
Diabetes nurse practitioner evaluation for management after insulin drip discontinued.
-
Eventually restart HIV medications
-
Metabolic acidosis/increased lactic acid-likely multifactorial-low blood pressure as well as decreased clearance for underlying liver disease.
Continue LR
Repeat labs later, depending on laboratories IV fluids will be adjusted.
-
Smoking cessation encouraged
[place] [address] 23 negative for lung nodules.
-
DVT prophylaxis with SCDs
-
Continue ICU hemodynamic monitoring.
-
Critical care statement: A total of 31 minutes of critical care time was provided for this patient today. This includes management of unstable vital signs, evaluation of the patient at bedside, reviewing the patient's pertinent medical records
including radiographs, microbiology, laboratory evaluations and discussion with primary team, critical care nursing, and respiratory therapy.
[2024-04-03 14:11] LABS: Glucose - Point of Care 195 mg/dl (70-99)
[2024-04-03] MEDS: LR 1000 IV ×3 (14:29→23:32)
[2024-04-03 15:06] LABS: Glucose - Point of Care 152 mg/dl (70-99)
--- NOTE | 2024-04-03 15:09 | PTCARENOTE ---
Pt AAOx3. Sinue tach 110. 99% on room air. Denies abd pain or nausea. Protonix gtt d/c'd per order. Remains on Insulin and Sandostatin gtt. Received 2nd unit of PRBC per order. All other assessments unchanged.
--- NOTE | 2024-04-03 15:19 | W.PN.UPDATE ---
Update Note
Progress Note Update
Non-billable addendum
Admitted by Five Roll Refiner Batch Mixer at 630 AM for acute GI bleeding
admitted to ICU
s/p EGD showing Grade 2 esophageal varices banded x 3. Large amount of dark hematin in gastric body. Normal duodenum.
currently resting, on IV octreotide drip, insulin drip, IVF
Assessment:
Acute upper GI bleed, variceal (hx of Prior esophageal varices)
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
Acute Blood Loss Anemia secondary to the above
- continue ICU level of care
- s/p EGD: Grade 2 esophageal varices banded x 3. Large amount of dark hematin in gastric body. Normal duodenum
- s/p 2 unit PRBC, most recent Hb 6.9, repeat at 6pm. keep Hb>7
- continue octreotide
- continue PPI
- continue IVF
- Rocephin for GI prophylaxis x 5 days
- NPO/ice chips
- GI following
Metabolic acidosis with lactic Acidosis, from hypotension and underlying cirrhosis
- continue IVF (LR)
- follow serial labs
DM-II, Uncontrolled
- Likely secondary to acute illness + being off of meds for months.
- Minimal elevation in anion gap (15) and minimal elevation in B-OH.
- continue insulin drip per protocol
- diabetes RELIGIOUS EDUCATION COORDINATOR following
- A1c is 8.9%
HIV Positive
- Off of medications (Biktarvy) since January.
- Check CD4 counts.
- ID consulted.
- May need prophylaxis depending on CD4 counts.
Essential HTN
- holding BP meds
Acute on chronic thrombocytopenia
- likely acute phase from consumption from GI bleed, chronic phase from liver disease
- monitor CBC
Tobacco abuse
DVT Prophylaxis: SCDs
Code Status: Full
--- NOTE | 2024-04-03 16:07 | CON.ID ---
Consultation
-
Date/Time Consultation Requested: 04/03/24 8:15
Date/Time Consultation Performed: 04/03/24 16:08
Requesting Provider: Dr Banda
Performing Provider: Dr Walters
Reason for Consultation: HIV Positive. No meds since January.
Chief Complaint / Past History
Chief Complaint
Hematemesis
History of Present Illness
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 Symptoms began sunday with fatigue, lightheadedness with standing, poor
appetite, symptoms progressed Sunday and note noted black stools sunday and sunday. Then progressed to dyspnea on exertion and flushing. Vomited up blood - he felt about a pints worth and came to the ER. Denies: chest pain, abdominal pain,
fevers, chills. Drank EtOH last sunday. Reports he hasnt been compliant with ARVs which would have been treatment for HIV and Hep B. Not compliant with Dm2 drugs. Denies: headaches, changes in vision, sore throat/dysphagia, nausea, diarrhea,
constipation, dysuria, new rashes new joint pains. no pets
Since arrival here he has been afebrile, bp stable, HR initally 130s now low 100s, wbc on arrival 8.9, hgb baseline from 2021 was 7.4 and 6.4 on arrival and has remained 6.9, plt 115, no left shift, eos were present, INR 1.5, CO2 on arrival 14, cr
1.0, lactic acid initially 6.5, repeast in progress, a1c 8.9, t bili 0.6, ast 42, alt 34, alk phos 43, afp pending, underwent endoscopy with grade III varices which were banded with incomplete aradication, no bleeding during or at the end of
procedure, coffee ground emesis in the stomach, NPO
Past History
Additional Past Medical History:
candidal esophagitis
Additional Past Surgical History:
Hernia Repair
EGD with Variceal Banding (2021)
Allergy History:
aspirin Allergy (Unknown, Verified 08/21/22 14:51)
Unknown
Penicillins Allergy (Unknown, Verified 08/21/22 14:51)
Unknown
Medications Reviewed: Yes
Social History
Tobacco: Smoker
Alcohol: Occasional
Drug: Former User (crack cocaine use, THC, etc - many years since last use. No history of IVDA)
Family History
Family History: Not Pertinent
Review of Systems
Review of Systems
General: Negative Fever or Chills
All systems: All other systems were reviewed and were negative
Vital Signs
Temp Pulse Resp BP Pulse Ox
97.8 F 114 12 136/97 100
04/03/24 14:26 04/03/24 14:26 04/03/24 14:26 04/03/24 14:26 04/03/24 14:00
Physical Exam
Physical Exam
Constitutional: No Acute Distress
Cardiovascular: Regular Rate and S1/S2; Negative Murmur or Rub
Pulmonary: Clear and Symmetric; Negative Wheezes, Rales or Rhonchi
Gastrointestinal: Soft, Non Tender, Non Distended and Normal Bowel Sounds
Skin: Warm and Dry; Negative Rash or Jaundice
Lab / Diagnostic Study Results
Abs Immat Gran (auto) 0.2 10^3/uL (0-0.05) H 04/03/24 04:27
Absolute Neuts (auto) 5.4 10^3/uL (1.4-6.5) 04/03/24 04:27
Absolute Lymphs (auto) 2.3 10^3/uL (1.2-3.4) 04/03/24 04:27
Absolute Monos (auto) 0.9 10^3/uL (0.1-0.6) H 04/03/24 04:27
Absolute Basos (auto) 0.0 10^3/uL (0-0.2) 04/03/24 04:27
Immature Gran % 2.1 % (0-0.5) H 04/03/24 04:27
Neutrophils % 61.4 % (42.2-75.2) 04/03/24 04:27
Lymphocytes % 25.8 % (20.5-51.1) 04/03/24 04:27
Monocytes % 9.6 % (1.7-9.3) H 04/03/24 04:27
Eosinophils % 0.8 % (0-6) 04/03/24 04:27
Basophils % 0.3 % (0-2) 04/03/24 04:27
PT 18.4 Sec (11.4-14.6) H 04/03/24 04:27
INR 1.52 04/03/24 04:27
Lactic Acid 2.2 mmol/L (0.7-2.0) H 04/03/24 11:46
Assessment / Plan
HIV
Hep B
Cirrhosis - due to EtOH abuse
EtOH Use disorder
GI Bleeding
Noncompliance
- happily LFTs currently normal - follow daily
- concerned that he could develop hep B flare and progression of HIV if he doesnt become compliant with medications
- when last checked 12/27 hep B surface ag NR, hep B surface ab NR, hep B DNR not detcted, hep B core ab nonreactive. Hep B NAAT detected 08/02/22.
- agree with ceftriaxone x5 days as GI prophylaxis
- currently NPO per GI - will follow closely; when able will plan to restart ARVs with biktarvy
- cd4 sent - pending, agree that prophylaxis may be indicated; repeat cd4 and also obtain viral load in 1 month outpatient
- last HIV provider was Dr Doretha LINN - will request records, since then he was getting refills of biktarvy from his PCPs office but not routine HIV care. He has been following with GI re: Hep B and cirrhosis.
- extended conversation with patient regarding barriers to his and his partners care. He is happy to restart therapy and reports he had previously not had an interruption since the early at which point it was a co-decision with his treating MD.
He reports he wasnt fully aware of the risks of stopping and always planned to restart in the fall. I have been clear that I am willing to accommodate his and his partner xiomara's schedules to ensure they restart and remain in care including
scheduling his appointments immediately after his GI appointments if needed; I have also offered the alternatives of seeing one of my partners if he/they would prefer and he indicates he would prefer to stay with me at this time.
[2024-04-03 16:22] LABS: Blood Urea Nitrogen 35 mg/dl (9-20); Calcium 8.4 mg/dl (8.4-10.2); Carbon Dioxide 13 mmol/L (22-30); Chloride 104 mmol/L (98-107); Estimated Creatinine Clearance 97 ml/min; Glucose 425 mg/dl (70-99); Potassium 4.3 mmol/L (3.5-5.1); Sodium 133 mmol/L (135-145); eGFR > 60.00
[2024-04-03 16:52] LABS: Lactic Acid 1.3 mmol/L (0.7-2.0)
[2024-04-03 16:52] LABS: Blood Urea Nitrogen 28 mg/dl (9-20); Calcium 7.9 mg/dl (8.4-10.2); Carbon Dioxide 21 mmol/L (22-30); Chloride 113 mmol/L (98-107); Estimated Creatinine Clearance 109 ml/min; Glucose 134 mg/dl (70-99); Potassium 4.5 mmol/L (3.5-5.1); Sodium 140 mmol/L (135-145); eGFR > 60.00
[2024-04-03 16:57] LABS: Hematocrit 24.1 % (39.0-52.0); Hemoglobin 8.5 g/dL (13.0-18.0)
[2024-04-03 17:16] LABS: Glucose - Point of Care 151 mg/dl (70-99)
[2024-04-03 18:39] LABS: AFP Male/Tumor Marker 3.94 ng/ml
[2024-04-03 19:01] LABS: Glucose - Point of Care 142 mg/dl (70-99)
--- NOTE | 2024-04-03 20:00 | PTCARENOTE ---
Received patient AAOx3, following commands, denying pain. Sinus tach 110s, BP stable, 130s/80s, normothermic, no edema. 99% on room air, lung sounds clear. Positive bowel sounds,abdomen soft, round, nontender. Urinal to void, putting out yellow
urine. Scabs on rodriguez POA. PIVs patent, WNL. LR, insulin, and octreotide gtt ongoing per protocol/order. Call meng within reach, able to make needs known.
[2024-04-03 20:12] LABS: Glucose - Point of Care 127 mg/dl (70-99)
[2024-04-03 21:05] LABS: Glucose - Point of Care 124 mg/dl (70-99)
[2024-04-03 22:05] LABS: Glucose - Point of Care 127 mg/dl (70-99)
[2024-04-03 23:21] LABS: Glucose - Point of Care 109 mg/dl (70-99)
[2024-04-04] VITALS (20 sets, daily range): BP systolic 116–146; BP diastolic 66–86; BMI 28.4
--- NOTE | 2024-04-04 00:11 | PTCARENOTE ---
Fluids decreased to 125 ml. Otherwise patient assessment unchanged from previous. Call meng within reach, insulin gtt ongoing.
[2024-04-04 01:16] LABS: Glucose - Point of Care 98 mg/dl (70-99)
[2024-04-04 02:29] LABS: Hemoglobin 7.3 g/dL (13.0-18.0)
[2024-04-04 03:16] LABS: Glucose - Point of Care 133 mg/dl (70-99)
[2024-04-04] MEDS: SANDOSTATIN 500.6 MCG IV ×2 (06:03→20:12)
[2024-04-04 06:18] LABS: Glucose - Point of Care 98 mg/dl (70-99)
[2024-04-04] MEDS: LR 1000 IV (06:20)
[2024-04-04 06:51] LABS: ALT (SGPT) 45 U/L (0-50); AST (SGOT) 63 U/L (17-59); Albumin 2.9 g/dl (3.5-5.0); Alkaline Phosphatase 37 U/L (38-126); Blood Urea Nitrogen 20 mg/dl (9-20); Calcium 7.7 mg/dl (8.4-10.2); Carbon Dioxide 23 mmol/L (22-30); Chloride 110 mmol/L (98-107); Direct Bilirubin 0.2 mg/dl (0.0-0.4); Estimated Creatinine Clearance 109 ml/min; Glucose 87 mg/dl (70-99); Magnesium 1.9 mg/dl (1.6-2.3); Phosphorus 3.6 mg/dl (2.5-4.5); Potassium 3.9 mmol/L (3.5-5.1); Sodium 141 mmol/L (135-145); Total Bilirubin 0.6 mg/dl (0.2-1.3); Total Protein 6.1 g/dl (6.3-8.2); eGFR > 60.00
[2024-04-04 07:08] LABS: Hematocrit 22.4 % (39.0-52.0); Hemoglobin 7.8 g/dL (13.0-18.0); Mean Corp Hgb Conc. 34.8 g/dL (33.0-37.0); Mean Corpuscular Hgb 30.5 pg (27.0-31.0); Mean Corpuscular Volume 87.5 fL (80.0-94.0); Mean Platelet Volume 11.6 fL (7.4-10.4); Platelet Count 104 10^3/uL (130-400); Red Blood Cell Count 2.56 10^6/uL (4.70-6.10); Red Cell Dist. Width 14.9 % (11.5-14.5); White Blood Cell Count 9.8 10^3/uL (4.8-10.8)
--- NOTE | 2024-04-04 07:39 | PN.DE.MGMTRT ---
Insulin Management
- -
04/04/2024 Diabetes Management F/U:
Patient admitted 04/03 vomiting blood, Hx of esophageal varices. PMH Prior alcohol abuse, cirrhosis, esophageal varices, anemia, HIV, type 2 diabetes requiring insulin. A1C 8.9, Cr 0.8, eGFR >60. Prior to admission was taking no diabetes
medications since January 2024, but is supposed to be taking Lantus 12 units @ HS with Humalog 7 units AC. States he took a 'medication vacation' and stopped his insulin and all other medications. Glucose on admission 409 POC and 429 venous.
Patient is awake alert and oriented, able to discuss diabetes mgt.
He is s/p EGD: Grade 2 esophageal varices banded x 3. Glycemic protocol was initiated on 04/03 due to hyperglycemia.
Glucose range 98 to 133, requiring 1.1 to 4 units of insulin/hr
Pt remains NPO with ice chips. Will transition from IV insulin to Lantus and NovoLog
Give Lantus 15 units NOW and turn drip off 1 hr after.
Start moderate corrective Q6 hrs. Add NovoLog 7 units AC when pt is tolerating diet.
Cont Lantus 15 units @HS, may need insulin doses adjusted once on a diet
Discuss diabetes plan with Dr. Patel and Pt's Nurse
Pt states he had a glucose meter but its not working. Offered pt new glucose meter but he declined it stating that he is going to get a script for a CGM from his PCP upon discharge.
Diabetes History
- -
Type of Diabetes: 2 requiring insulin
Pre-Admission Diabetes Regimen
04/03/24 04/03/24 04/03/24
04:52 13:00 16:33
Creatinine 0.9 Cancelled 0.8
04/04/24 04/04/24
05:02 06:14
Creatinine Cancelled 0.8
Lab Results
Hemoglobin A1c 8.9 % (4.0-5.6) H 04/03/24 04:27
Insulin Pump Settings
IP Diabetes Regimen
04/03/24 04/03/24 04/03/24
04:52 07:55 09:01
Glucose 425 H
POC Glucose 394 H 377 H
04/03/24 04/03/24 04/03/24
10:13 11:43 12:54
Glucose
POC Glucose 357 H 274 H 238 H
04/03/24 04/03/24 04/03/24
13:00 14:00 14:55
Glucose Cancelled
POC Glucose 195 H 152 H
04/03/24 04/03/24 04/03/24
16:33 17:05 18:48
Glucose 134 H
POC Glucose 151 H 142 H
04/03/24 04/03/24 04/03/24
20:01 20:54 21:54
Glucose
POC Glucose 127 H 124 H 127 H
04/03/24 04/04/24 04/04/24
23:10 01:04 03:04
Glucose
POC Glucose 109 H 98 133 H
04/04/24 04/04/24 04/04/24
05:02 06:07 06:14
Glucose Cancelled 87
POC Glucose 98
Patient Education
[2024-04-04 08:36] LABS: Glucose - Point of Care 129 mg/dl (70-99)
[2024-04-04] MEDS: PROTONIX IV 40 MG IV ×2 (08:51→20:13)
[2024-04-04] MEDS: NSS (PRESERVATIVE FREE) 10 ML IV ×2 (08:52→20:12)
--- NOTE | 2024-04-04 09:00 | PTCARENOTE ---
Complete assessment done and documented. Pt remains SR as per monitor, O2 sat=99% on R/A. IVF at 125 ml/hr, Octreatide at 50.04 mch/hr, and insulin drp at 4 units/hr following protocol. Pt denies any abd or throat discomfort. Call meng at side.
--- NOTE | 2024-04-04 09:01 | W.PN.ID1 ---
Date of Service
Date of Service: April 04, 2024
Today's Communication
- restart biktarvy
- cd4 sent - pending, agree that prophylaxis may be indicated; repeat cd4 and also obtain viral load in 1 month outpatient
- continue ceftriaxone x5 days, if stable for dc prior to completion can switch to ciprofloxacin 500 mg PO BID to complete the course. QTc acceptable
Assessment / Plan
HIV
Hep B
Cirrhosis - due to EtOH abuse
EtOH Use disorder
GI Bleeding
Noncompliance
- restart biktarvy
- cd4 sent - pending, agree that prophylaxis may be indicated; repeat cd4 and also obtain viral load in 1 month outpatient
- last HIV provider was Dr Doretha LINN - await records, since then he was getting refills of biktarvy from his PCPs office but self discontinued about 3 months ago. He has been following with GI re: Hep B and cirrhosis also until about 3 months
ago.
- extended conversation with patient regarding barriers to his and his partners care 04/03. He is happy to restart therapy and reports he had previously not had an interruption since the early at which point it was a co-decision with his
treating MD. He reports he wasnt fully aware of the risks of stopping and always planned to restart in the fall. I have been clear that I am willing to accommodate his and his partner xiomara's schedules to ensure they restart and remain in care
including scheduling his appointments immediately after his GI appointments if needed; I have also offered the alternatives of seeing one of my partners if he/they would prefer and he indicates he would prefer to stay with me at this time.
- continue ceftriaxone x5 days, if stable for dc prior to completion can switch to ciprofloxacin 500 mg PO BID to complete the course. QTc acceptable
Chief Complaint
-: Other (HIV, Hep B; cirrhosis with GI bleeding)
Subjective / Review of Systems
afebrile
bp stable
s/p 2 units prbcs
no other events overnight
Vital Signs / Physical Exam
Vital Signs
Vital Signs
Temp Pulse Resp BP Pulse Ox
98.3 F 97 10 137/86 99
04/04/24 07:30 04/04/24 06:00 04/04/24 06:00 04/04/24 06:00 04/03/24 21:50
Physical Exam
Constitutional: No Acute Distress and Chronically Ill
Cardiovascular: Regular Rate and S1/S2; Negative Murmur or Rub
Pulmonary: Clear and Symmetric; Negative Wheezes or Rales
Gastrointestinal: Soft, Non Tender, Non Distended and Normal Bowel Sounds
Skin: Warm and Dry; Negative Rash or Jaundice
Objective Data
Lab Data
Lab Results
04/04/24 06:14
PT 18.4 Sec (11.4-14.6) H 04/03/24 04:27
INR 1.52 04/03/24 04:27
APTT 28.5 Sec (23.4-35.0) 04/03/24 04:27
Estimated Creat Clear 109 ml/min 04/04/24 06:14
Lactic Acid Cancelled 04/03/24 22:21
Total Bilirubin 0.6 mg/dl (0.2-1.3) 04/04/24 06:14
AST 63 U/L (17-59) H 04/04/24 06:14
ALT 45 U/L (0-50) 04/04/24 06:14
Alkaline Phosphatase 37 U/L (38-126) L 04/04/24 06:14
Most recent labs reviewed.
Care Review
Plan reviewed with: Physician (PASCUAL khan)
--- NOTE | 2024-04-04 09:31 | W.PN.GI.CBS2 ---
Addendum entered and electronically signed by Parag Miner MD 04/04/24 12:00:
I saw and examined the patient.
The PA's note was reviewed and I agree with the note.
Comment:
S/p EGD yesterday for hematemesis, EVL x 3. Denies vomiting, pain. Hgb stable. PPI IV, complete 72 hour course of octreotide gtt. CLD today. Again discussed the need to stop drinking alcohol.
Original Note:
Today's Communication / Plan
-
continue IV PPI, Octreotide gtt, IV abx
OK to advance diet to clears
Assessment / Plan
-
58 yo M pmh hep B (not on meds thought via sexual transmission iwth prior hep B core +, s AG/AB neg with detected VL<10), HIV (on Biktarvy), DEV, hyperlipidemia, HTN, regular EtOH use with ETOH cirrhosis and prior EV bleeding/MW tear with banding in
July 2022 and remains on Nadolol. Since that time he has had routine follow up with Dr. Zimmerman and last with Rose Altman in 12/2023. He also Dr. Hilton at [facility] in 2022 with concern for possible acute ETOH hepatitis with decompensation
without further follow up. He has had several EGD since bleeding with noted noted grade I EV in August 2022 and julien with nystatin treatment. December 2022 + MARTIN with Fluconazole treatment then EGD 10/27 with grade I varices no julien seen and
repeat EGD 6-12 months. He now presents with 2 episodes vomiting blood about 1 pint total blood. On admission noted with hbg 6.4, Platelets 115, Co2 14, glucose 429, lactate 6.5, albumin 2.9, INR 1.5. Pt also noted with tachycardia and mild
hypotension.
EGD 04/03/24 Dr. Manning:
Grade II esophageal varices. Banded x3
- Large amount of dark hematin (altered
blood/ktlgfv-[id number] material) in the gastric body.
- Normal examined duodenum.
- No specimens collected.
IMPRESSION:
-Hematemesis secondary to esophageal variceal bleeding
-symptomatic anemia
-ETOH cirrhosis
-acidosis
-DM with marked elevated FBS on admission
-elevated lactate on admission
-ETOH use
other med problems:
-hx prior julien
-HIV on biktarvy
-hep B no meds
-DEV
-hyperlipidemia
-HTN
-family hx colon CA neg cologuard 2021
PLAN:
Esophageal Variceal Bleeding, acute blood loss anemia
- s/p EGD 04/03 with variceal banding x3
- continue IV PPI (Protonix 40mg) BID
- continue IV Octreotide gtt to complete 72 hours course (started 04/03)
- continue IV abx (Rocephin) to complete 5 day course
- trend Hgb; do not overtransfuse
- OK for clear liquid diet
Alcoholic Cirrhosis
- patient continues to drink ETOH, monitor for withdrawal
- MELD 3.0 = 11
- outpatient followup with Dr. Zimmerman
HIV/Hep B
- off all medications since January; Infectious Disease consulting
We will folllow.
Subjective
Subjective
Date of Service: April 04, 2024
Feeling improved. No abdominal pain, nausea, vomiting, fever, chills.
-last episode of hematemesis 2 days ago
Objective
Data Reviewed
Laboratory Data:
Laboratory Results
04/04/24 06:14
Laboratory Results
PT 18.4 Sec (11.4-14.6) H 04/03/24 04:27
INR 1.52 04/03/24 04:27
APTT 28.5 Sec (23.4-35.0) 04/03/24 04:27
Phosphorus 3.6 mg/dl (2.5-4.5) 04/04/24 06:14
Magnesium 1.9 mg/dl (1.6-2.3) 04/04/24 06:14
Total Bilirubin 0.6 mg/dl (0.2-1.3) 04/04/24 06:14
AST 63 U/L (17-59) H 04/04/24 06:14
ALT 45 U/L (0-50) 04/04/24 06:14
Alkaline Phosphatase 37 U/L (38-126) L 04/04/24 06:14
Vital Signs and I&O:
Vital Signs
Temp Pulse Resp BP Pulse Ox
98.3 F 97 10 137/86 99
04/04/24 07:30 04/04/24 06:00 04/04/24 06:00 04/04/24 06:00 04/03/24 21:50
I&O
04/03/24 04/04/24 04/05/24
06:59 06:59 06:59
Intake Total 3958.8 / 3958.8
Output Total 1900 / 1900
Balance 2058.8 / 2058.8
Physical Exam
Physical Exam
Cardiology: Normal Sinus Rhythm
Pulmonary: Clear
GI: Soft, Non Distended, Non Tender and Normal Bowel Sounds
Extremities: No Edema
Neuro: Non Focal
[2024-04-04] MEDS: BIKTARVY 50-200-25 MG TABLET PO (09:45)
--- NOTE | 2024-04-04 09:49 | W.PN.HOSP.TC ---
Today's Communication/Plan
-
diet advancement per GI; can dc IVF if this occurs
monitor Hb
continue Octreotide
continue Rocephin
continue PPI
insulin adjustments per diet advancement per HEALTHCARE ECONOMICS MANAGER
follow ID recs
Possible downgrade later
Assessment / Plan
Assessment / Plan
Assessment:
Acute upper GI bleed, variceal (hx of Prior esophageal varices)
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
Acute Blood Loss Anemia secondary to the above
- s/p EGD: Grade 2 esophageal varices banded x 3. Large amount of dark hematin in gastric body. Normal duodenum
- s/p 2 unit PRBC, most recent Hb 7.8. Follow Hb
- continue octreotide per GI
- continue PPI IV BID
- Rocephin for GI prophylaxis x 5 days
- NPO/ice chips
- continue IVF, if diet advanced can dc it
- GI following
Metabolic acidosis with lactic Acidosis, from hypotension and underlying cirrhosis
- continue IVF (LR)
- follow serial labs
DM-II, Uncontrolled
- Likely secondary to acute illness + being off of meds for months.
- Minimal elevation in anion gap (15) and minimal elevation in B-OH.
- s/p insulin drip; resume basal Lantus. When PO established, resume bolus insulin
- diabetes DIE REPAIRER TRIMMER DIES following
- A1c is 8.9%
HIV Positive
Hep B
- Off of medications (Biktarvy) since January. Plans to resume after discussion with ID.
- Check CD4 counts this hospitalization and repeat CD4 + viral load in 1 month outpatient. This will help determine need for prophylaxis.
Essential HTN
- holding BP meds
Acute on chronic thrombocytopenia
- likely acute phase from consumption from GI bleed, chronic phase from liver disease
- monitor CBC
Tobacco abuse
DVT Prophylaxis: SCDs
Code Status: Full
Total Critical Care Time 42 minutes. I was immediately available to the patient and staff. I personally examined, reviewed labs, diagnostic images/reports, interpretations, treatment plans, discussed patient care with other providers and family
or caregivers (if patient is unable to make decisions), entered orders as appropriate and documented the medical record.
Anticipated Discharge: > 48 hours
Subjective/Interval History
-
Date of Service: April 04, 2024
denies any new complaints at present
Objective Data
-
Labs:
Laboratory Results
04/04/24 04/04/24 04/04/24
02:08 05:02 06:14
WBC Cancelled 9.8
Hgb 7.3 L Cancelled 7.8 L
Hct 21.0 L Cancelled 22.4 L
Plt Count Cancelled 104 L
Sodium Cancelled 141
Potassium Cancelled 3.9
Chloride Cancelled 110 H
Carbon Dioxide Cancelled 23
BUN Cancelled 20
Creatinine Cancelled 0.8
Glucose Cancelled 87
Calcium Cancelled 7.7 L
Total Bilirubin Cancelled 0.6
AST Cancelled 63 H
ALT Cancelled 45
Alkaline Phosphatase Cancelled 37 L
04/04/24 04/04/24
10:00 18:00
WBC
Hgb Pending Pending
Hct Pending Pending
Plt Count
Sodium
Potassium
Chloride
Carbon Dioxide
BUN
Creatinine
Glucose
Calcium
Total Bilirubin
AST
ALT
Alkaline Phosphatase
Vital Signs:
Vital Signs
Temp Pulse Resp BP Pulse Ox
98.3 F 97 10 137/86 99
04/04/24 07:30 04/04/24 06:00 04/04/24 06:00 04/04/24 06:00 04/03/24 21:50
I&O
04/03/24 04/04/24 04/05/24
06:59 06:59 06:59
Intake Total 3958.8 / 3958.8
Output Total 1899
Balance /
Physical Exam
-
General: No Apparent Distress
HEENT: Normocephalic and Atraumatic
Respiratory: Negative Wheezes
Cardiac: Regular Rhythm
GI: Soft
Musculoskeletal: No Edema
Neuro: AO x 3
Hematologic / Lymphatic: No Lymphadenopathy
Psych: Calm
Data Reviewed
-
Critical Care Time (in minutes): 42
Labs: Labs Reviewed by me
[2024-04-04 10:21] LABS: Glucose - Point of Care 121 mg/dl (70-99)
[2024-04-04] MEDS: FLUSH (NSS) 1 FLUSH IV ×2 (10:50→11:05)
[2024-04-04] MEDS: ROCEPHIN 2000 MG IV (10:52)
[2024-04-04] MEDS: STERILE WATER FOR INJECTION 20 ML IV (10:52)
[2024-04-04] MEDS: LANTUS 0.15 UNITS SC ×2 (10:58→22:38)
--- NOTE | 2024-04-04 11:38 | W.PN.INTV ---
Addendum entered and electronically signed by Mars Roberts MD 04/04/24 12:43:
See below.
Original Note:
Today's Communication / Plan
Recommendations
Hemoglobin and hematocrit stable. Repeat H&H at 3 PM
Continue IV PPI, octreotide, and IV antibiotics
Possible downgrade later today
Assessment
-
Upper GI bleed: Likely variceal bleed.
Acute blood loss anemia hemoglobin 6.4 on admission-symptomatic
Hyperglycemia-likely noncompliant
Conditions present prior admission:
Liver cirrhosis from alcohol abuse
Prior esophageal varices
Tobacco abuse
HIV positive
Type 2 diabetes
Hypertension
EGD with variceal banding 2021
Assessment and plan:
-
04/04/24:
No apparent active GI bleed following successful EGD with three grade 2 esophageal varices banded.
Hemoglobin and hematocrit stable. Repeat H&H at 3 PM
Continue IV PPI, octreotide, and IV antibiotics
Patient advanced to clear liquid diet as per GI -if tolerated will DC IV fluids
CD4 level sent
LFTs within normal limits
Possible downgrade later today
-
04/03/24:
Ongoing transfusion:
Follow H&H-will continue to transfuse as necessary.
For EGD emergently today: Grade 2 esophageal varices banded x 3. Large amount of dark hematin in gastric body. Normal duodenum. No specimens collected.
Octreotide drip
PPI twice daily IV
Prophylactic antibiotic for 5 days-ceftriaxone. SBP prophylaxis
N.p.o. for now
-
Hyperglycemia: Will start insulin drip per protocol
Frequent Accu-Cheks
Diabetes nurse practitioner evaluation for management after insulin drip discontinued.
-
restart HIV medications once able to tolerate oral intake
-
Metabolic acidosis/increased lactic acid-likely multifactorial-low blood pressure as well as decreased clearance for underlying liver disease.
Continue LR
Repeat labs later, depending on laboratories IV fluids will be adjusted.
-
Smoking cessation encouraged
Latest [place] [address] 23 negative for lung nodules.
-
DVT prophylaxis with SCDs
-
Continue ICU hemodynamic monitoring.
-
Critical care statement: A total of 31 minutes of critical care time was provided for this patient today. This includes management of unstable vital signs, evaluation of the patient at bedside, reviewing the patient's pertinent medical records
including radiographs, microbiology, laboratory evaluations and discussion with primary team, critical care nursing, and respiratory therapy.
Subjective Dataa
Subjective Data
Date of Service:
Date of Service: April 04, 2024
Met with patient at the bedside. Patient is calm and pleasant in discussion. He offers no complaints at the present time other than a desire to resume a normal diet. Spoke to patient about the likely incremental advancement of his diet and
patient is aware.
Review of Systems
General: Satisfactory Appetite
Objective Data
Data Reviewed
Vital Signs / I&O / Oxygen:
Vital Signs
Temp Pulse Resp BP Pulse Ox
98.3 F 97 10 137/86 99
04/04/24 07:30 04/04/24 06:00 04/04/24 06:00 04/04/24 06:00 04/03/24 21:50
Intake and Output
04/03/24 04/04/24 04/05/24
06:59 06:59 06:59
Intake Total 3958.8 / 3958.8
Output Total 1900 / 1900 300 / 300
Balance 2058.8 / 2058.8 -300 / -300
SaO2 99
Physical Exam
General: Comfortable
HEENT: Normocephalic
Cardiovascular: Regular Rhythm
Respiratory: Clear and Non-Labored Respirations
GI: Soft, Non Distended, Non Tender and Normal Bowel Sounds
Neurology: Awake, Alert and Oriented
Skin: Warm and Dry
Labs/Micro/Reports
Lab Data
04/04/24 18:00
04/04/24 06:14
[2024-04-04 12:19] LABS: Glucose - Point of Care 160 mg/dl (70-99)
[2024-04-04] MEDS: BIKTARVY 50-200-25 MG TABLET 1 TABLET PO (12:50)
[2024-04-04] MEDS: NOVOLOG FLEXPEN-MODERATE RESISTANCE 1 UNITS SC (13:12)
[2024-04-04] MEDS: NOVOLOG FLEXPEN 7 UNITS SC ×2 (13:16→17:54)
--- NOTE | 2024-04-04 13:54 | PTCARENOTE ---
Pt seen by Dr Balderrama, Dr Miner, and Mali Olson (natural resources extension educator). Pt weaned off of insulin drip. Lantus given approx 1100 and insulin drip off at 1200. Pt cleared by Surg/GI to have clear liq diet today. Pt tolerating without difficulty. Pt
cleared to go to tele bed today when available.
--- NOTE | 2024-04-04 15:24 | PN.CDI ---
CDI
- -
CDI:
Physician Documentation Request
Admit Date: 04/03/24 07:44
Dear Doctor Jorge
The diagnosis of DKA was documented on 04/03 in ED record as 'discharge problem', but is not consistently noted in subsequent documentation.
Please clarify the following:
____ - DKA was present on admission
____ - DKA was ruled out
____ - Other
Use of terms such as suspected, likely, concern for, or probable (associated with a specific diagnosis that is being evaluated, monitored, or treated as if it exists) are acceptable and can be coded in the inpatient setting, when documented at the
time of discharge.
Thank you,
Fabiola Hardin RN, BSN
CDI Specialist
tiger text
Please use your independent medical judgment in providing your response.
[2024-04-04 15:35] LABS: Hematocrit 20.2 % (39.0-52.0); Hemoglobin 7.1 g/dL (13.0-18.0)
--- NOTE | 2024-04-04 15:43 | W.PN.UPDATE ---
Update Note
Progress Note Update
Hemoglobin 7.1. Patient hemodynamically stable.
No further bleeding.
Will transfuse 1 unit of packed red blood cells.
Okay to transfer to telemetry as he has been a stable.
--- NOTE | 2024-04-04 15:55 | PTCARENOTE ---
Hbg=7.1, Dr Meyers made aware, and would like pt to receive 1 unit of PRBS's when available. Pt being brought over now to his new room 404-1 via wheelchair, on telemetry, and with his octreotide drip infusing at 50.04 mcg/hr. Pt stable on feet.
Pt pleasant and thankful. VSS.
--- NOTE | 2024-04-04 16:03 | PTCARENOTE ---
pt transferred from ICU awake ad alert offers no complaints. LCTA B/L on RA. RRR, abd soft NT last BM 04/02. +PP B/L No edema Skin CDI. CB in reac.
--- NOTE | 2024-04-04 16:25 | CM ---
met with patient at bedside.advance diet,dc ivf,cont iv ppi,iv abx,octreotide.patient tx to [facility].Plan dc home with no needs.
[2024-04-04 17:49] LABS: CD4 % of Cells Analyzed 37 % (32-64); CD4 Absolute Count 711 cells/uL (430-1800)
[2024-04-04 17:53] LABS: Glucose - Point of Care 226 mg/dl (70-99)
[2024-04-04] MEDS: NOVOLOG FLEXPEN-MODERATE RESISTANCE 3 UNITS SC (17:55)
--- NOTE | 2024-04-04 20:00 | PTCARENOTE ---
3 Units of blood was ordered for pt dating 04/03/24 but only 2/3 was given. Repeat Hgb was ordered on 04/04 @1500- Order was added for 1 Unit to be given and was finished on 04/04 @715. see MAR for transfusion. Notified PHYSICALLY IMPAIRED TEACHER if the additional order for
Blood is needed to be transfused- although it was ordered on 04/03. Per notes- 'do not overtransfuse' Repeat H&H @330 on 11/03- continue to monitor.
[2024-04-04 21:46] LABS: Glucose - Point of Care 159 mg/dl (70-99)
[2024-04-05 03:31] VITALS: BP 111/75
[2024-04-05 04:01] LABS: Hematocrit 22.3 % (39.0-52.0); Hemoglobin 7.8 g/dL (13.0-18.0)
[2024-04-05] MEDS: SANDOSTATIN 500.6 MCG IV ×2 (05:53→17:37)
[2024-04-05 06:00] VITALS: BMI 27.8
[2024-04-05 07:00] VITALS: BP 111/74
[2024-04-05 07:20] LABS: Glucose - Point of Care 257 mg/dl (70-99)
--- NOTE | 2024-04-05 07:49 | W.PN.HOSP.TC ---
Today's Communication/Plan
-
continue Octreotide, prophylactic Abx
Fluconazole per ID
full liquids
Assessment / Plan
Assessment / Plan
Assessment:
Acute upper GI bleed, variceal (hx of Prior esophageal varices)
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
Acute Blood Loss Anemia secondary to the above
- s/p EGD: Grade 2 esophageal varices banded x 3. Large amount of dark hematin in gastric body. Normal duodenum
- s/p 2 unit PRBC, most recent Hb 8.5. Follow Hb
- continue octreotide per GI - finishing Sunday
- continue PPI IV BID
- Rocephin for GI prophylaxis x 5 days (final dose Sunday)
- diet: advance to full liquids
- GI following
- ETOH abstinence discussed at length
Metabolic acidosis with lactic Acidosis, from hypotension and underlying cirrhosis
- resolved
- monitor BMP
DM-II, Uncontrolled
DKA was not present (erroneously entered by ER team)
- Likely secondary to acute illness + being off of meds for months.
- Minimal elevation in anion gap (15) and minimal elevation in B-OH.
- s/p insulin drip; resume basal Lantus. When PO established, resume bolus insulin. Relative hyperglycemia today from clear liquids (high glucose content liquids)
- diabetes MAITRE D following
- A1c is 8.9%
HIV Positive
Hep B
- Off of medications (Biktarvy) since January. Plans to resume after discussion with ID.
- Check CD4 counts this hospitalization and repeat CD4 + viral load in 1 month outpatient. This will help determine need for prophylaxis.
Concern for esophageal fungal infection
- ID ordered 14 days Fluconazole
Essential HTN
- holding BP meds; resume at discharge
Acute on chronic thrombocytopenia
- likely acute phase from consumption from GI bleed, chronic phase from liver disease
- monitor CBC
Tobacco abuse
DVT Prophylaxis: SCDs
Code Status: Full
Anticipated Discharge: Within 24 hours
Subjective/Interval History
-
Date of Service: April 05, 2024
tolerating clears
denies any other complaints
Objective Data
-
Labs:
Laboratory Results
04/05/24 04/05/24
03:29 06:20
WBC Pending
Hgb 7.8 L Pending
Hct 22.3 L Pending
Plt Count Pending
Sodium Pending
Potassium Pending
Chloride Pending
Carbon Dioxide Pending
BUN Pending
Creatinine Pending
Glucose Pending
Calcium Pending
Vital Signs:
Vital Signs
Temp Pulse Resp BP Pulse Ox
98.3 F 88 18 111/75 95
04/05/24 03:31 04/05/24 03:31 04/05/24 03:31 04/05/24 03:31 04/05/24 03:31
I&O
04/04/24 04/05/24 04/06/24
06:59 06:59 06:59
Intake Total 3958.8 / 4126.6 1847.9 / 1847.9
Output Total 1900 / 1900 2750 / 2750
Balance 2058.8 / 2226.6 -902.1 / -902.1
Physical Exam
-
General: No Apparent Distress
HEENT: Normocephalic and Atraumatic
Respiratory: Negative Wheezes
Cardiac: Regular Rhythm
GI: Soft
Musculoskeletal: No Edema
Neuro: AO x 3
Psych: Calm
Data Reviewed
-
Total Time Spent with Patient (in minutes): 41
Labs: Labs Reviewed by me
[2024-04-05] MEDS: NOVOLOG FLEXPEN 7 UNITS SC ×3 (08:13→17:37)
[2024-04-05] MEDS: NOVOLOG FLEXPEN-MODERATE RESISTANCE 5 UNITS SC ×2 (08:13→17:38)
[2024-04-05] MEDS: NSS (PRESERVATIVE FREE) 10 ML IV ×2 (08:14→19:19)
[2024-04-05] MEDS: BIKTARVY 50-200-25 MG TABLET 1 TABLET PO (08:14)
[2024-04-05] MEDS: PROTONIX IV 40 MG IV ×2 (08:14→19:19)
[2024-04-05 08:27] LABS: Blood Urea Nitrogen 14 mg/dl (9-20); Calcium 7.8 mg/dl (8.4-10.2); Carbon Dioxide 22 mmol/L (22-30); Chloride 107 mmol/L (98-107); Estimated Creatinine Clearance 109 ml/min; Glucose 140 mg/dl (70-99); Hematocrit 24.2 % (39.0-52.0); Hemoglobin 8.5 g/dL (13.0-18.0); Mean Corp Hgb Conc. 35.1 g/dL (33.0-37.0); Mean Corpuscular Hgb 31.5 pg (27.0-31.0); Mean Corpuscular Volume 89.6 fL (80.0-94.0); Mean Platelet Volume 12.2 fL (7.4-10.4); Platelet Count 98 10^3/uL (130-400); Potassium 4.1 mmol/L (3.5-5.1); Red Cell Dist. Width 15.3 % (11.5-14.5); Sodium 136 mmol/L (135-145); White Blood Cell Count 5.4 10^3/uL (4.8-10.8); eGFR > 60.00
--- NOTE | 2024-04-05 09:31 | W.PN.ID1 ---
Addendum entered and electronically signed by Theodora Rodriguez MD 04/08/24 10:31:
CDI query response:
Pt has HIV disease.
Original Note:
Date of Service
Date of Service: April 05, 2024
Today's Communication
Start fluconazole for julien esophagitis. See below.
Assessment / Plan
HIV
Julien esophagitis
Hep B - no evidence of relapse at this time while off TAF/FTC (components of Biktarvy)
Cirrhosis - due to EtOH abuse
EtOH Use disorder
GI Bleeding
Noncompliance
- restarted biktarvy
- cd4 = 711 (36%) repeat cd4 and also obtain viral load in 1 month outpatient
- last HIV provider was Dr Coyne U - await records, since then he was getting refills of biktarvy from his PCPs office but self discontinued about 3 months ago. He has been following with GI re: Hep B and cirrhosis also until about 3 months
ago.
- Julien esophagitis. Upper endoscopy MARTIN prep + fungus.
Pt reports h/o Julien in esophagus treated with Nystatin swish and swallow.
Start fluconazole 400mg po qd x 14d.
QTc fine.
- Dr. Walters had extended conversation with patient: regarding barriers to his and his partners care 04/03. He is happy to restart therapy and reports he had previously not had an interruption since the early at which point it was a
co-decision with his treating MD. He reports he wasnt fully aware of the risks of stopping and always planned to restart in the fall. I have been clear that I am willing to accommodate his and his partner xiomara's schedules to ensure they restart
and remain in care including scheduling his appointments immediately after his GI appointments if needed; I have also offered the alternatives of seeing one of my partners if he/they would prefer and he indicates he would prefer to stay with me at
this time.
- continue ceftriaxone x5 days, if stable for dc prior to completion can switch to ciprofloxacin 500 mg PO BID to complete the course. QTc acceptable
Chief Complaint
-: Other (HIV, Hep B; cirrhosis with GI bleeding)
Subjective / Review of Systems
No dysphagia/odynophagia.
Took Biktarvy this am.
Vital Signs / Physical Exam
Vital Signs
Vital Signs
Temp Pulse Resp BP Pulse Ox
98.3 F 91 16 111/74 96
04/05/24 07:00 04/05/24 07:00 04/05/24 07:00 04/05/24 07:00 04/05/24 07:00
Physical Exam
Constitutional: No Acute Distress
Oropharyngeal: Negative Thrush
Cardiovascular: Regular Rate and S1/S2
Pulmonary: Clear
Gastrointestinal: Soft, Non Tender and Non Distended
Extremities: Negative Edema
Neurological: AO x 3
Objective Data
Lab Data
Lab Results
04/05/24 06:20
04/05/24 06:20
PT 18.4 Sec (11.4-14.6) H 04/03/24 04:27
INR 1.52 04/03/24 04:27
APTT 28.5 Sec (23.4-35.0) 04/03/24 04:27
Estimated Creat Clear 109 ml/min 04/05/24 06:20
Lactic Acid Cancelled 04/03/24 22:21
Total Bilirubin 0.6 mg/dl (0.2-1.3) 04/04/24 06:14
AST 63 U/L (17-59) H 04/04/24 06:14
ALT 45 U/L (0-50) 04/04/24 06:14
Alkaline Phosphatase 37 U/L (38-126) L 04/04/24 06:14
Most recent labs reviewed.
[2024-04-05] MEDS: FLUSH (NSS) 1 FLUSH IV ×3 (11:04→19:20)
[2024-04-05] MEDS: DIFLUCAN 400 MG PO (11:04)
[2024-04-05] MEDS: ROCEPHIN 2000 MG IV (11:05)
[2024-04-05] MEDS: STERILE WATER FOR INJECTION 20 ML IV (11:05)
[2024-04-05 11:16] LABS: Glucose - Point of Care 310 mg/dl (70-99)
[2024-04-05 11:20] VITALS: BP 124/76
[2024-04-05] MEDS: NOVOLOG FLEXPEN-MODERATE RESISTANCE 7 UNITS SC (11:59)
--- NOTE | 2024-04-05 12:21 | W.PN.GI.CBS2 ---
Today's Communication / Plan
-
Reg diet, GI s/o.
Assessment / Plan
-
58 yo M pmh hep B (not on meds thought via sexual transmission iwth prior hep B core +, s AG/AB neg with detected VL<10), HIV (on Biktarvy), DEV, hyperlipidemia, HTN, regular EtOH use with ETOH cirrhosis and prior EV bleeding/MW tear with banding in
July 2022 and remains on Nadolol. Since that time he has had routine follow up with Dr. Zimmerman and last with Rose Altman in 12/2023. He also Dr. Hilton at [facility] in 2022 with concern for possible acute ETOH hepatitis with decompensation
without further follow up. He has had several EGD since bleeding with noted noted grade I EV in August 2022 and julien with nystatin treatment. December 2022 + MARTIN with Fluconazole treatment then EGD 10/27 with grade I varices no julien seen and
repeat EGD 6-12 months. He now presents with 2 episodes vomiting blood about 1 pint total blood. On admission noted with hbg 6.4, Platelets 115, Co2 14, glucose 429, lactate 6.5, albumin 2.9, INR 1.5. Pt also noted with tachycardia and mild
hypotension.
Patient feels well and denies pain or vomiting. Will advance to regular diet. Complete 72-hour course of octreotide infusion and 5-day course of antibiotics. Will need to follow-up with Dr. Lord as OP. GI will sign off please call with
questions.
Total Time Spent with Patient (in minutes): 35
Subjective
Subjective
Date of Service: April 05, 2024
Feels well, hungry
Objective
Data Reviewed
Laboratory Data:
Laboratory Results
04/05/24 06:20
04/05/24 06:20
Laboratory Results
PT 18.4 Sec (11.4-14.6) H 04/03/24 04:27
INR 1.52 04/03/24 04:27
APTT 28.5 Sec (23.4-35.0) 04/03/24 04:27
Phosphorus 3.6 mg/dl (2.5-4.5) 04/04/24 06:14
Magnesium 1.9 mg/dl (1.6-2.3) 04/04/24 06:14
Total Bilirubin 0.6 mg/dl (0.2-1.3) 04/04/24 06:14
AST 63 U/L (17-59) H 04/04/24 06:14
ALT 45 U/L (0-50) 04/04/24 06:14
Alkaline Phosphatase 37 U/L (38-126) L 04/04/24 06:14
Vital Signs and I&O:
Vital Signs
Temp Pulse Resp BP Pulse Ox
99.3 F 87 16 124/76 98
04/05/24 11:20 04/05/24 11:20 04/05/24 11:20 04/05/24 11:20 04/05/24 11:20
I&O
04/04/24 04/05/24 04/06/24
06:59 06:59 06:59
Intake Total 3958.8 / 4126.6 1847.9 / 1847.9
Output Total 1900 / 1900 2750 / 2750
Balance 2058.8 / 2226.6 -902.1 / -902.1
[2024-04-05 15:45] VITALS: BP 118/74
[2024-04-05 16:22] LABS: Glucose - Point of Care 254 mg/dl (70-99)
--- NOTE | 2024-04-05 16:45 | CM ---
Chandan will be returning home with his partner at discharge. Biktarvy will be started as outpatient; currently on IV abx which will be transitioned to oral at discharge if course is not completed.
Plan: Discharge home with no needs.
[2024-04-05 19:55] VITALS: BP 122/69
[2024-04-05] MEDS: LANTUS 0.15 UNITS SC (21:32)
[2024-04-05 21:33] LABS: Glucose - Point of Care 193 mg/dl (70-99)
[2024-04-05 23:40] VITALS: BP 119/76
[2024-04-06 03:38] VITALS: BP 129/83
[2024-04-06 06:00] VITALS: BMI 27.1
[2024-04-06 07:30] VITALS: BP 128/84
[2024-04-06 07:34] LABS: Glucose - Point of Care 188 mg/dl (70-99)
[2024-04-06] MEDS: BIKTARVY 50-200-25 MG TABLET 1 TABLET PO (08:14)
[2024-04-06] MEDS: DIFLUCAN 400 MG PO (08:14)
[2024-04-06] MEDS: PROTONIX IV 40 MG IV (08:15)
[2024-04-06] MEDS: NSS (PRESERVATIVE FREE) 10 ML IV (08:15)
[2024-04-06] MEDS: NOVOLOG FLEXPEN-MODERATE RESISTANCE 1 UNITS SC (08:19)
[2024-04-06] MEDS: NOVOLOG FLEXPEN 7 UNITS SC (08:19)
[2024-04-06 08:32] LABS: Hematocrit 26.4 % (39.0-52.0); Hemoglobin 9.2 g/dL (13.0-18.0); Mean Corp Hgb Conc. 34.8 g/dL (33.0-37.0); Mean Corpuscular Hgb 31.5 pg (27.0-31.0); Mean Corpuscular Volume 90.4 fL (80.0-94.0); Mean Platelet Volume 12.2 fL (7.4-10.4); Platelet Count 105 10^3/uL (130-400); Red Blood Cell Count 2.92 10^6/uL (4.70-6.10); Red Cell Dist. Width 16.1 % (11.5-14.5); White Blood Cell Count 5.4 10^3/uL (4.8-10.8)
[2024-04-06 08:48] LABS: Blood Urea Nitrogen 11 mg/dl (9-20); Calcium 7.9 mg/dl (8.4-10.2); Carbon Dioxide 24 mmol/L (22-30); Chloride 105 mmol/L (98-107); Estimated Creatinine Clearance 97 ml/min; Glucose 168 mg/dl (70-99); Potassium 3.8 mmol/L (3.5-5.1); Sodium 137 mmol/L (135-145); eGFR > 60.00
--- NOTE | 2024-04-06 09:01 | W.PN.HOSP.TC ---
Today's Communication/Plan
-
dc home
Assessment / Plan
Assessment / Plan
Assessment:
Acute upper GI bleed, variceal (hx of Prior esophageal varices)
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
Acute Blood Loss Anemia secondary to the above
- s/p EGD: Grade 2 esophageal varices banded x 3. Large amount of dark hematin in gastric body. Normal duodenum
- s/p 2 unit PRBC, most recent Hb 9.2.
- s/p octreotide course
- continue PPI PO BID
- Rocephin for GI prophylaxis x 5 days (final dose Sunday) - Cipro 500mg BID x 2 days to finish it
- diet: tolerating regular
- GI follow up OP
- ETOH abstinence discussed at length
Metabolic acidosis with lactic Acidosis, from hypotension and underlying cirrhosis
- resolved
- monitor BMP
DM-II, Uncontrolled
DKA was not present (erroneously entered by ER team)
- Likely secondary to acute illness + being off of meds for months.
- Minimal elevation in anion gap (15) and minimal elevation in B-OH.
- s/p insulin drip; resume basal Lantus.
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
- A1c is 8.9%
HIV Positive
Hep B
- Off of medications (Biktarvy) since January. Plans to resume after discussion with ID. Will send RX.
- Check CD4 counts this hospitalization and repeat CD4 + viral load in 1 month outpatient. This will help determine need for prophylaxis.
Concern for esophageal fungal infection
- ID ordered 14 days Fluconazole
Essential HTN
- resume BP meds at discharge
Acute on chronic thrombocytopenia
- likely acute phase from consumption from GI bleed, chronic phase from liver disease
- monitor CBC
Tobacco abuse
DVT Prophylaxis: SCDs
Code Status: Full
More than 30 minutes spent in discharge including
Final examination of the patient
Summarizing hospital stay
Instructions for continuing care to all relevant caregivers
Preparation of discharge records, prescriptions, and referral forms
Total time spent (in minutes): 41
Anticipated Discharge: Today
Subjective/Interval History
-
Date of Service: April 06, 2024
Objective Data
-
Labs:
Laboratory Results
04/06/24
07:29
WBC 5.4
Hgb 9.2 L
Hct 26.4 L
Plt Count 105 L
Sodium 137
Potassium 3.8
Chloride 105
Carbon Dioxide 24
BUN 11
Creatinine 0.9
Glucose 168 H
Calcium 7.9 L
Vital Signs:
Vital Signs
Temp Pulse Resp BP Pulse Ox
98.3 F 82 18 128/84 99
04/06/24 07:30 04/06/24 07:30 04/06/24 07:30 04/06/24 07:30 04/06/24 07:30
I&O
04/05/24 04/06/24 04/07/24
06:59 06:59 06:59
Intake Total 1847.9 / 1847.9 1440 / 1440
Output Total 2750 / 2750 5200 / 5200
Balance -902.1 / -902.1 -3760 / -3760
--- NOTE | 2024-04-06 09:15 | W.DS.TRANS ---
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
-
Discharge Instructions:
Discharge Diagnosis/Procedures variceal bleeding s/p EGD/banding on 04/03.
Esophageal candidiasis
Diet Diabetic, Carb Controlled
Activity As tolerated
Blood Work CD4 count, viral load and CMP in 1 month
Instructions:
Stand-Alone Forms:
Changes to Home Medications: No
Discharge Medications:
DC Medications w/original date entered in [employer]
insulin glargine 100 unit/mL (3 mL) subcutaneous pen (Lantus Solostar U-100 Insulin) 12 unit (0.12 mL) SC HS #5 ea 08/04/22
insulin lispro 100 unit/mL subcutaneous pen 7 sliding scale dose SC AC Diabetes 04/03/24
bictegravir 50 mg-emtricitabine 200 mg-tenofovir alafenam 25 mg tablet (Biktarvy) 1 tab PO DAILY Infection #30 tabs 04/06/24
ciprofloxacin HCl 500 mg tablet (Cipro) 500 mg PO BID #3 tabs 04/06/24
fluconazole 200 mg tablet 400 mg (2 x 200 mg) PO DAILY #12 tabs 04/06/24
hydrochlorothiazide 25 mg tablet 25 mg PO DAILY Fluid Retention/Swelling #30 tabs 04/06/24
lisinopril 10 mg tablet 10 mg PO DAILY Blood Pressure #30 tabs 04/06/24
nadolol 20 mg tablet 40 mg (2 x 20 mg) PO DAILY Gastrointestinal Issue #30 tabs 04/06/24
pantoprazole 40 mg tablet,delayed release 40 mg PO BID #60 tabs 04/06/24
rosuvastatin 5 mg tablet 5 mg PO QPM High Cholesterol #30 tabs 04/06/24
Home Medication Changes
Pending Results: No
Total time spent discharging patient (in min): 41
[2024-04-06 11:05] VITALS: BP 130/80
[2024-04-06 11:54] LABS: Glucose - Point of Care 177 mg/dl (70-99)
--- NOTE | 2024-04-06 12:47 | CM ---
SPENCER met with Chandan this morning to discuss discharge and assess if he has any needs prior to or for discharge. Chandan advised that he is hoping to go home early afternoon, and anticipates that he will have no needs. His prescriptions have been
sent to his pharmacy and he will pick them up at discharge.
SPENCER offered ETOH resources, however Chandan advised that he had been through a program over the past month or so and is 'hooked in to resources.
Plan: Discharge to home with no needs.
[2024-04-06] MEDS: NOVOLOG FLEXPEN-MODERATE RESISTANCE SC (12:56)
[2024-04-06] MEDS: NOVOLOG FLEXPEN SC (12:56)
[2024-04-06] MEDS: FLUSH (NSS) IV ×2 (12:57)
--- NOTE | 2024-04-08 10:12 | PN.CDI ---
CDI
- -
CDI:
Physician Documentation Request
Admit Date: 04/03/24 07:44
Dear Doctor Michael,
Patient has a history of HIV. ID progress notes indicate pt self discontinued Biktarvy 3 months prior to admission.
Patient noted to have julien esophagitis
Laboratory Tests
04/03/24
11:46
% CD4 Cells 37
Absolute CD4 Count 711
Please provide further specificity for the patient's HIV status.
Asymptomatic HIV infection status: HIV + but no associated opportunistic infection
HIV disease (AIDS, AIDS related complex HIV infection, symptomatic)
Other
Use of terms such as suspected, likely, concern for, or probable (associated with a specific diagnosis that is being evaluated, monitored, or treated as if it exists) are acceptable and can be coded in the inpatient setting, when documented at the
time of discharge.
Thank you,
Fabiola Hardin RN, BSN
CDI Specialist
tiger text
Please use your independent medical judgment in providing your response.
== END 2024-04-06 13:31 | disposition home or self-care (01) | DRG 432 ==
LOC: 4 EAST ACU 07:44
PROVIDERS: Nurse Practitioner Adult Health; ADMITTING PHYSICIAN Hospitalist; ATTENDING PHYSICIAN Internal Medicine; CONSULT PHYSICIAN Internal Medicine Gastroenterology; CONSULT PHYSICIAN Internal Medicine Infectious Disease; EMERGENCY PHYSICIAN Emergency Medicine; FAMILY PHYSICIAN Family Medicine; OTHER PHYSICIAN Internal Medicine Critical Care Medicine
PROC: 30233N1 Transfusion of Nonautologous Red Blood Cells into Peripheral Vein, Percutaneous Approach (ICD-10-PCS; 2024-04-03)
PROC: 06L38CZ Occlusion of Esophageal Vein with Extraluminal Device, Via Natural or Artificial Opening Endoscopic (ICD-10-PCS; 2024-04-03)
DX: K70.30 Alcoholic cirrhosis of liver without ascites (principal); I85.11 Secondary esophageal varices with bleeding; D62 Acute posthemorrhagic anemia; B37.81 Candidal esophagitis; B19.10 Unspecified viral hepatitis B without hepatic coma; B20 Human immunodeficiency virus [HIV] disease; E87.20 Acidosis, unspecified; D69.59 Other secondary thrombocytopenia; F10.10 Alcohol abuse, uncomplicated; F17.210 Nicotine dependence, cigarettes, uncomplicated; G47.33 Obstructive sleep apnea (adult) (pediatric); I10 Essential (primary) hypertension; E11.65 Type 2 diabetes mellitus with hyperglycemia; Z79.4 Long term (current) use of insulin
CPT/HCPCS: 80048; 80053; 81003; 82010; 82077; 82105; 82248; 82805; 82962; 83036; 83605; 83735; 84100; 85014; 85018; 85025; 85027; 85610; 85730; 86361; 86850; 86900; 86901; 86920; 93005; 96361; 96374; 96375; 99291; P9016

== ENCOUNTER 2024-05-05 13:50 | Day surgery (SDC) | payer OTHER, SELFPAY ==
[2024-05-05 13:49] VITALS: BMI 26.9
[2024-05-05 14:00] VITALS: BP 104/73; BMI 26.9
[2024-05-05 14:10] LABS: Glucose - Point of Care 328 mg/dl (70-99)
[2024-05-05] MEDS: NOVOLOG vial 6 UNITS SC (14:39)
[2024-05-05 15:23] VITALS: BP 108/76
[2024-05-05 15:30] VITALS: BP 110/70
[2024-05-05 15:31] LABS: Glucose - Point of Care 275 mg/dl (70-99)
[2024-05-05 15:45] VITALS: BP 107/82
[2024-05-05 16:00] VITALS: BP 116/83
== END 2024-05-05 16:30 | disposition home or self-care (01) ==
LOC: SDS 13:50
PROVIDERS: ATTENDING PHYSICIAN Internal Medicine Gastroenterology
PROC: 0DJ08ZZ Inspection of Upper Intestinal Tract, Via Natural or Artificial Opening Endoscopic (ICD-10-PCS; 2024-05-05)
DX: K31.89 Other diseases of stomach and duodenum (principal); K22.89 Other specified disease of esophagus
CPT/HCPCS: 43235; 82962; 87220

== ENCOUNTER 2025-02-08 23:44 | Inpatient (IN) | payer OTHER, SELFPAY ==
[2025-02-08 21:16] VITALS: BP 152/108
[2025-02-08 21:18] VITALS: BP 152/107
[2025-02-08 21:24] VITALS: BMI 26.6
--- NOTE | 2025-02-08 21:44 | ED.GENMED ---
History of Present Illness
<Jackson Paris PA-C - Last Filed: 02/08/25 22:15>
General
Chief Complaint: Rectal Bleeding
Source: patient
Time Seen by Provider: 02/08/25 21:34
History of Present Illness
History of Present Illness:
59-year-old male with past medical history of hypertension, alcoholic liver cirrhosis with upper and lower GI bleeding, esophageal varices, insulin-dependent diabetes, HIV presenting to the emergency department for evaluation of black stool and
bright red hematemesis, symptoms started 2 days ago, today is when the bright red hematemesis started. Patient follows with GI here, Dr. Zimmerman. Notes that his last alcoholic beverage was this past Sunday noting he drank 3-4 beers. Patient
states that he had some cherries on Sunday but states that he did vomit this but vomited brighter red blood at least 2 or 3 times today. Patient is without any fevers, current abdominal pain, recurrent nausea. Denies any use of anticoagulants.
Past History
<Jackson Paris PA-C - Last Filed: 02/08/25 22:15>
Past History
ED Past Medical History: IDDM, Other (HIV) and Other (Cirrhosis, esophageal varices, GI bleed)
ED Past Surgical History: Other
Social History
Tobacco: Other
Alcohol: Occasional
Drug: None
Personal: Partner
Living: with family
Employment: Employed
Family History
Family History: Unable to obtain
Review of Systems
<Jcakson Paris PA-C - Last Filed: 02/08/25 22:15>
Review of Systems
All Other Systems: ROS reviewed and negative except as documented in HPI and ROS
Phy Exam
<Jackson Paris PA-C - Last Filed: 02/08/25 22:15>
Physical Exam
Physical Exam:
GENERAL: Alert , in no apparent distress
EYE: clear conjunctiva b/l
HEAD: NCAT
ENT: o/p clr, mmm.
CARDIAC: tachycardic rate and rhythm
LUNGS: Clear breath sounds bilaterally, no acute respiratory distress, no wheezes/rales/rhonchi
ABDOMEN: Soft, without focal tenderness, no r/g, no cvat
RECTAL EXAM: Jet black stool, heme positive
NEUROLOGICAL: Alert and oriented
SKIN: Warm and dry, skin intact. Pale in appearance
MUSCULOSKELETAL: No edema, well perfused.
PSYCH: Normal and appropriate interaction.
Scores
<Jackson Paris PA-C - Last Filed: 02/08/25 22:15>
Heart Failure Risk
Heart Failure Risk Score: Not Applicable
Heart Score for Chest Pain Patients
STEMI patient?: Not applicable
Withdrawal Assessment of Alcohol
Withdrawal Assessment Completed?: Not applicable
Course
<Jackson Paris PA-C - Last Filed: 02/08/25 22:15>
Orders/Labs/Results
Orders:
Orders
02/08/25 21:21
ECG [Electrocardiogram (*1)] Urgent
Reason for Study: Vertigo / Dizzy
EKG- Treatment ONCE
02/08/25 21:38
Octreotide [Sandostatin] 50 mcg IV NOW STA
Pantoprazole [Protonix IV] 80 mg IV NOW STA
02/08/25 21:41
CefTRIAXone [Rocephin] 1,000 mg IV NOW STA
02/08/25 21:45
Type+Screen Urgent
Alcohol Urgent
Complete Blood Count/With Diff Urgent
Comprehensive Metabolic Panel Urgent
Pantoprazole 80 mg/100 ml Nss [Protonix] 80 mg in 100 ml IV Q10H
02/08/25 21:48
Octreotide Acetate [Sandostatin] 600 mcg 0.9% Sodium Chloride 500 ml [Nss] 500 ml IV NOW
02/08/25 21:51
0.9% Sodium Chloride 1000 ml [Nss] 1,000 ml IV BOLUS
Ondansetron Injectable [Zofran] 4 mg IV NOW STA
02/08/25 22:05
PTT Urgent
Prothrombin Time Urgent
Abnormal Lab Results
02/08/25
21:45
RBC 3.65 L 10^6/uL
(4.70-6.10)
Hgb 10.9 L g/dL
(13.0-18.0)
Hct 30.5 L %
(39.0-52.0)
RDW 16.0 H %
(11.5-14.5)
Plt Count 119 L 10^3/uL
(130-400)
MPV 11.8 H fL
(7.4-10.4)
Absolute Monos (auto) 0.8 H 10^3/uL
(0.1-0.6)
Monocytes % 15.5 H %
(1.7-9.3)
Chloride 109 H mmol/L
(98-107)
Carbon Dioxide 18 L mmol/L
(22-30)
BUN 36 H mg/dl
(9-20)
Creatinine 0.6 L mg/dL
(0.7-1.3)
Glucose 387 H mg/dl
(70-99)
Total Bilirubin 1.5 H mg/dl
(0.2-1.3)
AST 63 H U/L
(17-59)
ALT 70 H U/L
(0-50)
02/08/25 21:45
02/08/25 21:45
Vital Signs
Initial and Last Documented VS:
Initial Vital Signs
Temp Pulse Resp BP Pulse Ox
98.2 F 152 24 152/108 98
02/08/25 21:16 02/08/25 21:16 02/08/25 21:16 02/08/25 21:16 02/08/25 21:16
Last Documented Vital Signs
Temp Pulse Resp BP Pulse Ox
98.2 F 142 18 152/107 98
02/08/25 21:16 02/08/25 21:30 02/08/25 21:30 02/08/25 21:18 02/08/25 21:44
<Dom Bower, DO - Last Filed: 02/08/25 22:02>
Orders/Labs/Results
Orders:
Orders
02/08/25 21:21
ECG [Electrocardiogram (*1)] Urgent
Reason for Study: Vertigo / Dizzy
EKG- Treatment ONCE
02/08/25 21:38
Octreotide [Sandostatin] 50 mcg IV NOW STA
Pantoprazole [Protonix IV] 80 mg IV NOW STA
02/08/25 21:41
CefTRIAXone [Rocephin] 1,000 mg IV NOW STA
02/08/25 21:45
Type+Screen Urgent
Alcohol Urgent
Complete Blood Count/With Diff Urgent
Comprehensive Metabolic Panel Urgent
Pantoprazole 80 mg/100 ml Nss [Protonix] 80 mg in 100 ml IV Q10H
02/08/25 21:48
Octreotide Acetate [Sandostatin] 600 mcg 0.9% Sodium Chloride 500 ml [Nss] 500 ml IV NOW
02/08/25 21:51
0.9% Sodium Chloride 1000 ml [Nss] 1,000 ml IV BOLUS
Ondansetron Injectable [Zofran] 4 mg IV NOW STA
02/08/25 22:05
PTT Urgent
Prothrombin Time Urgent
Abnormal Lab Results
02/08/25
21:45
RBC 3.65 L 10^6/uL
(4.70-6.10)
Hgb 10.9 L g/dL
(13.0-18.0)
Hct 30.5 L %
(39.0-52.0)
RDW 16.0 H %
(11.5-14.5)
Plt Count 119 L 10^3/uL
(130-400)
MPV 11.8 H fL
(7.4-10.4)
Absolute Monos (auto) 0.8 H 10^3/uL
(0.1-0.6)
Monocytes % 15.5 H %
(1.7-9.3)
Chloride 109 H mmol/L
(98-107)
Carbon Dioxide 18 L mmol/L
(22-30)
BUN 36 H mg/dl
(9-20)
Creatinine 0.6 L mg/dL
(0.7-1.3)
Glucose 387 H mg/dl
(70-99)
Total Bilirubin 1.5 H mg/dl
(0.2-1.3)
AST 63 H U/L
(17-59)
ALT 70 H U/L
(0-50)
02/08/25 21:45
02/08/25 21:45
Vital Signs
Initial and Last Documented VS:
Initial Vital Signs
Temp Pulse Resp BP Pulse Ox
98.2 F 152 24 152/108 98
02/08/25 21:16 02/08/25 21:16 02/08/25 21:16 02/08/25 21:16 02/08/25 21:16
Last Documented Vital Signs
Temp Pulse Resp BP Pulse Ox
98.2 F 142 18 152/107 98
02/08/25 21:16 02/08/25 21:30 02/08/25 21:30 02/08/25 21:18 02/08/25 21:44
<Jackson Paris PA-C - Last Filed: 02/08/25 22:15>
MDM/Problems Addressed
Differential Diagnosis Includes:
Variceal bleeding
Gastritis
Duodenitis
GERD
alcoholic hepatitis
Cirrhosis
Diverticular bleed
Anemia
MDM/Problems Addressed:
59-year-old male presenting to the ER for evaluation of upper and lower GI bleeding, reports a history of esophageal varices however based off my record review patient had a upper endoscopy done here in April 2024 which did not show any
esophageal varices but did show large amount of esophageal plaques. Patient certainly at risk for esophageal varices given his alcohol history. Here today patient has black stool that is heme positive. Given presentation we will treat with
Protonix bolus and drip, octreotide, Rocephin. 2 IVs placed. Fluids ordered. Will consult with GI.
Chronic conditions affecting care: Immunosuppressed and Other (Previous upper and lower GI bleeding)
Acute Exacerbation and/or Progression of Chronic Illness: Other (GI bleed)
<Jackson Paris PA-C - Last Filed: 02/08/25 22:15>
*Pulse Oximetry
SaO2: 98
Patient hypoxic: no
*EKG
Heart Rate: 144
Rate: tachycardiac
Rhythm: sinus
Wheeling: left axis deviation
QRS Pattern: right bundle branch block
*Clerk To Justice Interpretation
Rate: tachycardiac
Heart Rate: 140
Rhythm: sinus
*Critical Care Note
Total Time (30-74mins, 75-104mins- exclusive of procedures): 35
comment:
Critical care statement: A total of 35 minutes of critical care time was provided for this patient. This includes management of unstable vital signs, evaluation of the patient at bedside, reviewing the patient's pertinent medical records, discussion
with consultants, review of old EKGs and review of pertinent medical records. This time with separate from time utilized to perform the aforementioned documented procedures
Data Reviewed
Review of Other/Old Records Reveals: Labs, Records and Discharge Summary
<Jackson Paris PA-C - Last Filed: 02/08/25 22:15>
Patient Management
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
Escalation/DeEscalation of care consider admission/obs:
9:45 PM: Case discussed with GI, given the fact that patient had previous endoscopy without varices they do not feel he needs to go for endoscopy presently but if he has any further hematemesis while in the emergency department to notify them back
and they will take immediately to endoscopy for further evaluation.
ED Attending Note
<Jackson Paris PA-C - Last Filed: 02/08/25 22:15>
-
Portions of this chart may have been created with voice recognition software.� Occasional wrong word or��sound alike� substitutions may have occurred due to the inherent limitations of voice recognition software.
<Dom Bower DO - Last Filed: 02/08/25 22:02>
ED Attending Note
Patient seen and examined by attending physician: Yes
I performed the substantive portion of visit, reviewed & personally made and approve the management plan that is documented in note by myself or EDY.: Yes
ED Attending Note:
Seen with PA agree with assessment and plan 59 -[place] male alcoholic binge drinker presents with hematemesis and black stool looks pale states he was more pale previously when he was admitted
Discharge Plan
Departure
Patient Disposition: Admit
Date of Disposition: 02/08/25
Time of Disposition: 22:14
Presentation/result/management discussed w/ accepting MD/DO: Hospitalist
Discharge Problem:
Hematemesis, GI bleed, Diabetes mellitus with hyperglycemia
Prescriptions:
No Action
insulin glargine [Lantus Solostar U-100 Insulin] 100 unit/mL (3 mL) Insulin Pen
12 unit SC HS Qty: 5 0RF
insulin lispro 100 unit/mL Insulin Pen
7 sliding scale dose SC AC
pantoprazole 40 mg tablet,delayed release (DR/EC)
40 mg PO BID Qty: 60 0RF
nadolol 20 mg tablet
40 mg PO DAILY Qty: 30 0RF
lisinopril 10 mg Tablet
10 mg PO DAILY Qty: 30 0RF
hydrochlorothiazide 25 mg Tablet
25 mg PO DAILY Qty: 30 0RF
rosuvastatin 5 mg Tablet
5 mg PO QPM Qty: 30 0RF
Biktarvy 50-200-25 mg tablet
1 tab PO DAILY Qty: 30 0RF
Referrals:
UNKNOWN - PT DOES,NOT KNOW [Family Provider]
Interventions
Interventions:
*Risk Screen - Suicide Last Done: 02/08/25 21:16
*General Assessment Last Done: 02/08/25 21:25
*Neglect/Abuse Screening Last Done: 02/08/25 21:16
*ED- Fall Risk Assessment Last Done: 02/08/25 21:25
*ED COVID-19 Vaccine History Last Done: 02/08/25 21:25
Discharge Date and Time
Print Language: LATVIAN
[2025-02-08] MEDS: ZOFRAN 4 MG IV (21:54)
[2025-02-08] MEDS: NSS 1000 IV (21:54)
[2025-02-08 21:55] LABS: Hematocrit 30.5 % (39.0-52.0); Hemoglobin 10.9 g/dL (13.0-18.0); Mean Corp Hgb Conc. 35.7 g/dL (33.0-37.0); Mean Corpuscular Volume 83.6 fL (80.0-94.0); Nucleated Red Blood Cells % 0 % (-); Platelet Count 119 10^3/uL (130-400); Red Cell Dist. Width 16.0 % (11.5-14.5)
[2025-02-08] MEDS: ROCEPHIN 1000 MG IV (21:56)
[2025-02-08] MEDS: PROTONIX IV 80 MG IV (21:57)
[2025-02-08] MEDS: PROTONIX 100 IV (21:59)
[2025-02-08 22:00] VITALS: BP 141/102
[2025-02-08] MEDS: SANDOSTATIN 50 MCG IV (22:02)
[2025-02-08 22:06] LABS: ALT (SGPT) 70 U/L (0-50); AST (SGOT) 63 U/L (17-59); Albumin 4.2 g/dl (3.5-5.0); Alkaline Phosphatase 39 U/L (38-126); Blood Urea Nitrogen 36 mg/dl (9-20); Calcium 9.1 mg/dl (8.4-10.2); Carbon Dioxide 18 mmol/L (22-30); Chloride 109 mmol/L (98-107); Estimated Creatinine Clearance > 125 ml/min; Glucose 387 mg/dl (70-99); Potassium 4.4 mmol/L (3.5-5.1); Sodium 136 mmol/L (135-145); Total Protein 7.0 g/dl (6.3-8.2); eGFR > 60.00
[2025-02-08] MEDS: SANDOSTATIN 500.6 MCG IV (22:12)
[2025-02-08 22:23] LABS: INR 1.23; PT 15.8 Sec (11.4-14.6)
[2025-02-08 22:24] LABS: APTT 29.5 Sec (23.4-35.0)
[2025-02-08 22:30] VITALS: BP 164/110
[2025-02-08 23:00] VITALS: BP 146/104
--- NOTE | 2025-02-08 23:08 | HPS.HSE ---
Family Physician
-
Family Physician: NOT KNOW UNKNOWN - PT DOES
Chief Complaint
-
Rectal bleeding
History of Present Illness
This is a 59-year-old male with past medical history of alcoholic cirrhosis and self-reported varices, hypertension, insulin-dependent diabetes and hyperlipidemia as well as HIV who presents to the emergency department with concern for rectal and
upper GI bleed.
Patient reports that they started having symptoms on Sunday 1 day ago. Reports sudden onset of nausea. Then he reported seeing a black tarry stools. He tried to eat something light including some cherries which he immediately vomited. He
vomited a second time and thought it was bloody. The following day he continued to have black tarry stools and some of the more watery. Reported having dizziness and lightheadedness over the last 24 hours. Melena noted in ED. No bloody emesis at
this time. Patient reports history of varices in the past status post banding x 2. He denies any NSAID use. He denies any blood thinners, aspirin or NSAIDs. He denies having any fevers or chills.
Patient reports that he drinks alcohol (a glass of wine 4x/wk) with his last drink on Sunday.
In the emergency department patient was hypertensive with a blood pressure of 146/100, pulse of 130s and a temperature of 98.2. ECG with sinus tachycardia rate of 145 and incomplete right bundle.
Hemoglobin was 10.9 with MCV of 83 and a platelet count of 119. INR was 1.23.
Electrolytes are unremarkable. BUN/creatinine were stable with a BUN of 31 and creatinine of 0.6. Glucose was 387.
T. bili was 1.5, AST and ALT were slightly increased but not markedly changed from prior.
Medical History
Past Medical History
Past Medical History: Reports Other
Additional Past Medical History:
Alcoholic Cirrhosis with Varices
HIV Positive
DM-II
Hypertension
Past Surgical History: Reports Other
Additional Past Surgical History:
Hernia Repair
EGD with Variceal Banding (2021)
Social History
Tobacco: Smoker (Current every day smoker. 1/2ppd at present. Approx 30 pack years total use.)
Alcohol: Occasional (Still occasional alcohol. Last drink was glass of wine on Sunday.)
Drug: Former User (History of crack cocaine use, THC, etc - many years since last use. No history of IVDA.)
Family History
Family History: Diabetes and Other (Brother: Prostate Cancer)
Allergies / Home Medications
Allergies reflects when Allergies were last updated in [facility].
Home Medications with original date entered in [facility]
Allergy/Medication List:
Allergies
Allergy/AdvReac Type Severity Reaction Status Date / Time
aspirin Allergy Unknown Unknown Verified 08/21/22 14:51
Penicillins Allergy Unknown Unknown Verified 08/21/22 14:51
Home Medications
bictegravir 50 mg-emtricitabine 200 mg-tenofovir alafenam 25 mg tablet (Biktarvy) 1 tab PO DAILY Infection 07/31/22
rosuvastatin 10 mg tablet 10 mg PO HS 07/31/22
blood sugar diagnostic (OneTouch Verio test strips) #200 ea 08/04/22
insulin aspart U-100 100 unit/mL (3 mL) subcutaneous pen (Novolog FlexPen U-100 Insulin aspart) 7 unit (0.07 mL) SC AC #5 ea 08/04/22
insulin glargine 100 unit/mL (3 mL) subcutaneous pen (Lantus Solostar U-100 Insulin) 12 unit (0.12 mL) SC HS #5 ea 08/04/22
lancets 30 gauge (OneTouch Delica Lancets) #200 ea 08/04/22
metformin 1,000 mg tablet 1,000 mg PO BID@0800,1700 #60 tabs 08/04/22
nadolol 20 mg tablet 20 mg PO DAILY #30 tabs 08/04/22
pantoprazole 40 mg tablet,delayed release 40 mg PO BID #60 tabs 08/04/22
pen needle, diabetic 32 gauge x ' (BD Ultra-Fine Jailene Pen Needle) #200 ea 08/04/22
These are patient's prescribed medications for reference. He has been taking no medications since January.
Review of Systems
-
Constitutional: Reports No Symptoms
EENT: Reports No Symptoms
Respiratory: Reports No Symptoms
Cardiac: Reports No Symptoms
Abdomen/GI: Reports Bloody Stools
: Reports No Symptoms
Musculoskeletal: Reports No Symptoms
Skin: Reports No Symptoms
Neurological: Reports No Symptoms
Endocrine: Reports No Symptoms
Hematologic/Lymphatic: Reports No Symptoms
Psych: Reports No Symptoms
Physical Exam
Vital Signs
Vital Signs
Temp Pulse Resp BP Pulse Ox
98.2 F 122 16 146/104 99
02/08/25 21:16 02/08/25 23:00 02/08/25 23:00 02/08/25 23:00 02/08/25 23:00
Physical Exam
General: No Apparent Distress and Comfortable
HEENT: Other (Dry MM. Neck supple.)
Respiratory: Clear; No Wheezes, Rales or Rhonchi
Cardiac: S1/S2, Tachycardia and Murmur (II/ CHRISTIANNE)
GI: Soft, Non Tender, Non Distended and Normal Bowel Sounds
Rectal: Red
Musculoskeletal: No Clubbing, No Cyanosis and No Edema
Neuro: AO x 3
Hematologic/Lymphatic: No Lymphadenopathy
Psych: Calm
Laboratory Results
-
02/08/25 21:45
02/08/25 21:45
Laboratory Results
PT 15.8 Sec (11.4-14.6) H 02/08/25 22:05
INR 1.23 02/08/25 22:05
APTT 29.5 Sec (23.4-35.0) 02/08/25 22:05
Total Bilirubin 1.5 mg/dl (0.2-1.3) H 02/08/25 21:45
AST 63 U/L (17-59) H 02/08/25 21:45
ALT 70 U/L (0-50) H 02/08/25 21:45
Alkaline Phosphatase 39 U/L (38-126) 02/08/25 21:45
Data Reviewed
-
Medical Tests (Nuc Med, Echo, EKG etc): Image Personally Visualized and interpreted
Lab Data: Labs Reviewed by me
Old Records: Reviewed
Impression/Plan
-
IMPRESSION:
59-year-old with history of alcoholic liver disease and history of varices presenting to the emergency department with concern for gastric bleeding. Hemodynamically stable but tachycardic to the 140s. Hemoglobin 10.9 unchanged from prior. LFTs
seem stable and total bilirubin seems stable with no evidence of acute decompensation of liver disease besides the possible bleeding. Patient has no encephalopathy. Reports varices but last EGD 04/2024 neg for varices. No blood thinners, aspirin
or nsaids.
PLAN:
GI bleed -HD stable but possibility of aggressive bleeding
-Admit to IMU
-N.p.o.
-PPI drip
-Octreotide drip
-Type and screen, H&H every 6
-Transfuse for any marked drop in BP or for hemoglobin less than 8
-GI consulted and aware, if recurrent hematemesis will come in for scope otherwise a scope in the a.m.
-Patient is not on any thinners, DVT prophylaxis with SCDs
-Holding HCTZ and lisinopril for now
-Continue prophylaxis with nadolol, continue GI bleeding prophylaxis with ceftriaxone
CODE STATUS�full code
[2025-02-09] VITALS (38 sets, daily range): BP systolic 90–165; BP diastolic 53–111; PULSE 83–130; BMI 26.0
[2025-02-09] MEDS: LR 1000 IV ×2 (01:46→15:30)
[2025-02-09 02:05] LABS: Glucose - Point of Care 359 mg/dl (70-99)
[2025-02-09] MEDS: NOVOLOG FLEXPEN-LOW RESISTANCE 5 UNITS SC (02:34)
--- NOTE | 2025-02-09 02:42 | PTCARENOTE ---
Received patient from the ED overnight on an octreotide and protonix gtt. Sinus tach with BBB on the monitor. Mildly hypertensive. No bloody BMs/emesis since arrival. Will continue to monitor.
[2025-02-09 03:32] LABS: Hematocrit 29.2 % (39.0-52.0); Hemoglobin 10.2 g/dL (13.0-18.0); Mean Corp Hgb Conc. 34.9 g/dL (33.0-37.0); Mean Corpuscular Volume 85.4 fL (80.0-94.0); Platelet Count 105 10^3/uL (130-400); Red Cell Dist. Width 16.3 % (11.5-14.5)
[2025-02-09 03:55] LABS: Blood Urea Nitrogen 31 mg/dl (9-20); Calcium 8.8 mg/dl (8.4-10.2); Carbon Dioxide 18 mmol/L (22-30); Chloride 113 mmol/L (98-107); Estimated Creatinine Clearance 123 ml/min; Glucose 326 mg/dl (70-99); Potassium 4.1 mmol/L (3.5-5.1); Sodium 139 mmol/L (135-145); eGFR > 60.00
[2025-02-09] MEDS: NOVOLOG FLEXPEN-LOW RESISTANCE 300 UNITS SC (06:03)
[2025-02-09 06:13] LABS: Glucose - Point of Care 340 mg/dl (70-99)
--- NOTE | 2025-02-09 06:45 | CON.GI ---
Addendum entered and electronically signed by Mayra Stearns DO 02/09/25 08:07:
The patient was seen and examined by me independently in collaboration with the nurse practitioner.
Past medical history/social history/medications/allergies/family history reviewed.
Lab data and imaging data reviewed.
58 yo M pmh hep B (not on meds thought via sexual transmission with prior hep B core +, s AG/AB neg and VL<10 in 2021 and neg hep B core, S AB/ag, DNA neg in 2023) HIV (on Bitarvy follows with ID), DEV, hyperlipidemia, HTN, regular EtOH use(1 drink
3-4 days per week) with ETOH cirrhosis and prior EV bleeding/MW tear with banding on Nadolol admitted with multiple episodes of hematemesis and black stool. Reports feeling fatigued and lightheaded on Sunday with minimal blood in vomit, then
large amounts of bloody emesis yesterday. None since arrival to ED. Pt has had multiple EGD in past 3 years with concern for EV with banding, julien and last EGD 04/[address] Zimmerman with Plaques in esophagus MARTIN +, normal esophagus and stomach.
On admission hbg 10.9, platelets 119, INR 1.23, bili 1.5, AST 63, ALT 70, alk phos 39, albumin 4. He was tachycardic and hypertensive. On exam, he clinically appears well and denies any N/V or abdominal pain.
MELD 3.0= 10
A/P:
-NPO for EGD today
-hyperglycemic, needs insulin prior to EGD
-PPI gtt, octreotide gtt, Rocephin
-2 large bore peripheral guage IVs
-Trend H&H
-Transfuse for Hgb <7
-OP follow-up with Dr. Zimmerman, some compliance issues. Needs HCC screening q6 months
Original Note:
Consultation
-
Date/Time Consultation Requested: 02/09/2599
Date/Time Consultation Performed: 02/09/25 0645
Requesting Provider: grupo Solis MD
Performing Provider: GAL Wilhelm, Velma Stearns DO
Reason for Consultation: hematemesis, black stools
Medical History
Chief Complaint / HPI
Chief Complaint: hematemesis
History of Present Illness:
58 yo M pmh hep B (not on meds thought via sexual transmission with prior hep B core +, s AG/AB neg and VL<10 in 2021 and neg hep B core, S AB/ag, DNA neg in 2023) HIV (on Bitarvy follows with ID), DEV, hyperlipidemia, HTN, regular EtOH use(1 drink
3-4 days per week) with ETOH cirrhosis and prior EV bleeding/MW tear with banding on Nadolol.Pt has seen Dr. Hilton at [facility] several years ago and Dr. Zimmerman but admits to some compliance issues with follow up and last visit in August
canceled. Pt has had multiple EGD in past 3 years with concern for EV with banding, julien and last EGD 04/[address] Zimmerman with Plaques in esophagus MARTIN +, normal esophagus and stomach.
Pt now presents with onset of black stool since Sunday and vomiting small volume Sunday with cherries ingested then larger volume red emesis on Sunday prompting ER visit. Pt current admits to vomiting blood and mild nausea and dizziness and
black stools but denies wt loss, dysphagia, odynophagia, abdominal pain, distention, confusion, or blood in stools. Hx cologuard fall 2021. No Anticoagulation or NSAID use. Pt admits to compliance with medication. On admission hbg 10.9,
platelets 119, INR 1.23, bili 1.5, AST 63, ALT 70, alk phos 39, albumin 4. vital signs with mild tachycardia and HTN on admission.
Past Medical History
Past Medical History: HTN, Hypercholesterolemia, NIDDM and Other (hep B not on medication chronic carrier, HIV on Biktavy, continued ETOH use, ETOH cirrhosis without ascites and hx esophageal variceal bleeding with prior banding , julien
esophagitis, tobacco abuse)
Past Surgical History: Other (hernia)
Social History
Tobacco: Smoker
Alcohol: Occasional (1 drink with dinner 3-4 days per week)
Drug: None
Personal: Partner
Living: With Family
Employment: Retired
Family History
Family History: Other (father colon CA , son crohns, brother esophageal CA)
Allergies / Home Medications
Allergy/AdvReac Type Severity Reaction Status Date / Time
aspirin Allergy Unknown Unknown Verified 02/08/25 21:20
Penicillins Allergy Unknown Unknown- Verified 02/08/25 21:20
tolerated
ceftriaxone
04/03/24
�Medication �Instructions �Recorded
insulin glargine 100 unit/mL (3 12 unit (0.12 mL) SC HS #5 ea 08/04/22
mL) subcutaneous pen (Lantus
Solostar U-100 Insulin)
insulin lispro 100 unit/mL 7 sliding scale dose SC AC Diabetes 04/03/24
subcutaneous pen
bictegravir 50 mg-emtricitabine 1 tab PO DAILY Infection #30 tabs 04/06/24
200 mg-tenofovir alafenam 25 mg
tablet (Biktarvy)
hydrochlorothiazide 25 mg tablet 25 mg PO DAILY Fluid 04/06/24
Retention/Swelling #30 tabs
lisinopril 10 mg tablet 10 mg PO DAILY Blood Pressure #30 04/06/24
tabs
nadolol 20 mg tablet 40 mg (2 x 20 mg) PO DAILY 04/06/24
Gastrointestinal Issue #30 tabs
rosuvastatin 5 mg tablet 5 mg PO QPM High Cholesterol #30 04/06/24
tabs
famotidine 20 mg tablet 20 mg PO DAILY 02/08/25
Review of Systems
-
History Source: Patient
Constitutional: Reports No Symptoms
EENT: Reports No Symptoms
Respiratory: Reports No Symptoms
Cardiac: Reports No Symptoms
Abdomen/GI: Reports Nausea, Vomiting (hematemesis ) and Black Stools
: Reports No Symptoms
Musculoskeletal: Reports No Symptoms
Skin: Reports No Symptoms
Neurological: Reports Weakness
Endocrine: Reports No Symptoms
Hematologic/Lymphatic: Reports Bleeding
Vital Signs
Temp Pulse Resp BP Pulse Ox
98.6 F 112 15 133/97 99
02/09/25 03:00 02/09/25 05:00 02/09/25 05:00 02/09/25 05:00 02/09/25 05:00
Physical Exam
Exam
General: Well Developed, Well Nourished and No Apparent Distress
HEENT: Normocephalic and Anicteric
Respiratory: Clear
Cardiac: Other (tachy)
GI: Soft, Non Tender and Non Distended
Musculoskeletal: No Clubbing and No Cyanosis
Skin: Warm and Dry
Neuro: Awake, Alert and AO x 3
Psych: Calm
Results
WBC 5.0 10^3/uL (4.8-10.8) 02/09/25 03:16
Hgb 10.2 g/dL (13.0-18.0) L 02/09/25 03:16
Hct 29.2 % (39.0-52.0) L 02/09/25 03:16
MCV 85.4 fL (80.0-94.0) 02/09/25 03:16
Plt Count 105 10^3/uL (130-400) L 02/09/25 03:16
Absolute Neuts (auto) 2.8 10^3/uL (1.4-6.5) 02/08/25 21:45
PT 15.8 Sec (11.4-14.6) H 02/08/25 22:05
INR 1.23 02/08/25 22:05
APTT 29.5 Sec (23.4-35.0) 02/08/25 22:05
Sodium 139 mmol/L (135-145) 02/09/25 03:16
Potassium 4.1 mmol/L (3.5-5.1) 02/09/25 03:16
Chloride 113 mmol/L (98-107) H 02/09/25 03:16
Carbon Dioxide 18 mmol/L (22-30) L 02/09/25 03:16
BUN 31 mg/dl (9-20) H 02/09/25 03:16
Creatinine 0.7 mg/dL (0.7-1.3) 02/09/25 03:16
Calcium 8.8 mg/dl (8.4-10.2) 02/09/25 03:16
Total Bilirubin 1.5 mg/dl (0.2-1.3) H 02/08/25 21:45
AST 63 U/L (17-59) H 02/08/25 21:45
ALT 70 U/L (0-50) H 02/08/25 21:45
Alkaline Phosphatase 39 U/L (38-126) 02/08/25 21:45
Diagnostic Image Results:
Prior GI Procedures:
07/31/22 EGD: which showed Rachel-Ruano tear. Grade 1 esophageal varices completely eradicated and banded. Hematin in the stomach. Normal duodenum.
08/2022 EGD: showed small grade 1 varices in the lower third esophagus diminutive in size. Multiple small plaques in the esophagus cells for cytology obtained. Straight mild erythema in the stomach. Duodenum normal. Path did show Julien by
fluconazole interacts with his medications so I prescribed him nystatin for his yeast.
12/2022 EGD:small varices, plaques in esophagus likely Julien brushings performed. Patchy moderate erythema in stomach biopsy taken. Duodenum normal. Pathology showed mild chronic inflammation. MARTIN positive for fungus. Repeat EGD 6-12 mo. H pylori
neg
10/05/23 EGD: small grade I esophageal varices in the lower third of the esophagus
04/03/24-- EGD Do - Grade II esophageal varices. Banded x3- Large amount of dark hematin (altered blood/ulnbqk-cqalxw-eywg material) in the gastric body.- Normal examined duodenum. - No specimens collected
05/05/24- EGD Dr. Zimmerman- - Multiple plaques in the esophagus. Cells for cytology obtained - Normal esophagus.- Erythematous mucosa in the stomach.- Normal examined duodenum.
colonoscopy - none - pt states cologuard neg several years ago
Assessment / Plan
-
58 yo M pmh hep B (not on meds thought via sexual transmission with prior hep B core +, s AG/AB neg and VL<10 in 2021 and neg hep B core, S AB/ag, DNA neg in 2023) HIV (on Bitarvy follows with ID), DEV, hyperlipidemia, HTN, regular EtOH use(1 drink
3-4 days per week) with ETOH cirrhosis and prior EV bleeding/MW tear with banding on Nadolol.Pt has seen Dr. Hilton at [facility] several years ago and Dr. Zimmerman but admits to some compliance issues with follow up and last visit in August
canceled. Pt has had multiple EGD in past 3 years with concern for EV with banding, julien and last EGD 04/[address] Zimmerman with Plaques in esophagus MARTIN +, normal esophagus and stomach. He now presents with onset of hematemesis and Melana
with hbg 10.9 on admission. Pt also with uncontrolled FBS, HTN, and tachycardia on admission.
-hematemesis/black stools with concern for recurrent EV bleeding
- anemia
-tachycardia
-HTN
-ETOH cirrhosis with continued ETOH use
-DM with marked elevated FBS on admission
-hx prior julien
other med problems:
-HIV on bitarvy
-hep B no meds- last labs neg
-DEV
-hyperlipidemia on statin
-HTN
-family hx colon cA neg cologuard 2021
PLAN:
etiology of hematemesis related to recurrent EV bleed, portal gastropathy, MW tear vs other
Plan EGD today
NPO
PPI/octreotide gtt
cont abx - Ceftriaxone in setting of cirrhosis and GI Bleed
DM management per medical team
stressed to pt must quit ETOH
monitor for withdrawal
MELD 3.0 - 10 on admission labs
OP follow up with Dr. Zimmerman will need to scheduled - add AFP will need eventual follow up imaging as lost in GI follow up for surveillance
Need OP follow up with ID with HIV and hep B history
pt should consider colonoscopy with family hx colon CA instead of cologuard screening
-
-
Thank you for consultation and allowing me to participate in the patient's care. Please call the contact center assistant GI physician during the after hours with any questions or concerns.
[2025-02-09] MEDS: BIKTARVY 50-200-25 MG TABLET 1 TABLET PO (07:33)
[2025-02-09] MEDS: CORGARD 40 MG PO (07:33)
--- NOTE | 2025-02-09 07:45 | W.PN.HOSP.TC ---
Today's Communication/Plan
-
see A/P
Assessment / Plan
Assessment / Plan
HPI: 59-year-old with history of alcoholic liver disease, history of varices status post banding x 2, hypertension, insulin-dependent diabetes, hyperlipidemia, and HIV; p/w concern for GI bleeding.
Patient reported sudden onset of nausea, then saw black tarry stools. He vomited a second time and thought it was bloody.
He continued to have black tarry stools.
Reported dizziness and lightheadedness. Melena noted in ED.
He denies any NSAID use, blood thinners etc.
Patient reports that he drinks alcohol (a glass of wine 4x/wk) with his last drink on Sunday.
A/P:
# GI bleed- HD stable
# h/o cirrhosis with varices
N.p.o.
Cont PPI/octreotide drip
for EGD today
cont abx Ceftriaxone in setting of cirrhosis and GI Bleed
Continue prophylaxis with nadolol
Counselled on alcohol cessation
Holding HCTZ and lisinopril for now (BP stable)
Follow AFP
Other med problems:
# HIV on bitarvy, cont
# hep B no meds- last labs neg
# DEV
# Hyperlipidemia on statin
# HTN
Holding
# IDDM
cont insulin ISS
NPH 5 units today since pt did not receive Lantus the night prior
Cont Lantus 10 units (VP PRODUCT MARKETING 12 units HS) and aspart 5 units AC (VP PRODUCT MARKETING 7 units AC)
# Alcohol drinking
Counselled on alcohol cessation
monitor for withdrawal
MSAS protocol
DVT ppx: SCD
CODE STATUS�full code
total time 51 min
Anticipated Discharge: 24 - 48 hours
Subjective/Interval History
-
Date of Service: February 09, 2025
Objective Data
-
Labs:
Laboratory Results
02/08/25 02/08/25 02/09/25
21:45 22:05 03:16
WBC 5.3 5.0
Hgb 10.9 L 10.2 L
Hct 30.5 L 29.2 L
Plt Count 119 L 105 L
PT 15.8 H
INR 1.23
APTT 29.5
Sodium 136 139
Potassium 4.4 4.1
Chloride 109 H 113 H
Carbon Dioxide 18 L 18 L
BUN 36 H 31 H
Creatinine 0.6 L 0.7
Glucose 387 H 326 H
Calcium 9.1 8.8
Total Bilirubin 1.5 H
AST 63 H
ALT 70 H
Alkaline Phosphatase 39
02/09/25 02/09/25 02/09/25
09:15 15:15 21:15
WBC
Hgb Pending Pending Pending
Hct Pending Pending Pending
Plt Count
PT
INR
APTT
Sodium
Potassium
Chloride
Carbon Dioxide
BUN
Creatinine
Glucose
Calcium
Total Bilirubin
AST
ALT
Alkaline Phosphatase
Vital Signs:
Vital Signs
Temp Pulse Resp BP Pulse Ox
37.0 C 112 15 133/97 99
02/09/25 03:00 02/09/25 05:00 02/09/25 05:00 02/09/25 05:00 02/09/25 05:00
I&O
02/08/25 02/09/25 02/10/25
06:59 06:59 06:59
Intake Total 455 / 455
Output Total 600 / 600 350 / 350
Balance -145 / -145 -350 / -350
Review of Systems
-
History Source: Patient
All other systems: Reviewed and negative
Physical Exam
-
General: Well Developed, Well Nourished, No Apparent Distress, Comfortable and Conversant
HEENT: Normocephalic and Atraumatic
Respiratory: Clear to Auscultation and Non Labored Respirations; Negative Wheezes or Accessory Resp Muscle Use
Cardiac: Regular Rhythm and S1/S2
GI: Soft, Nontender, Nondistended and Normal Bowel Sounds
Musculoskeletal: No Edema
Neuro: Awake, Alert and AO x 3
Psych: Calm and Intact Judgement/Insight
Data Reviewed
-
Labs: Labs Reviewed by me
[2025-02-09] MEDS: PROTONIX 100 IV ×2 (07:49→17:24)
[2025-02-09 08:24] LABS: Glucose - Point of Care 294 mg/dl (70-99)
[2025-02-09] MEDS: FOLVITE PO (08:28)
[2025-02-09] MEDS: THIAMINE INJECTION IV (08:28)
[2025-02-09] MEDS: NOVOLIN N vial 0.05 UNITS SC (08:31)
[2025-02-09] MEDS: LANTUS 0.1 UNITS SC (08:32)
[2025-02-09] MEDS: NOVOLOG FLEXPEN 8 UNITS SC (09:37)
--- NOTE | 2025-02-09 09:41 | PTCARENOTE ---
Anesthesia requesting that patients blood sugar be checked prior to endoscopy scheduled for this AM. Blood sugar 294. Dr. Cotter and [facility] GI FREIGHT DISPATCHER made aware. Lantus 10 units and NPH 5 units given per order. GI EMMA Corrigan made aware and per RN,
anesthesia refusing to do endoscopy at this time due to elevated blood sugar. Dr. Cotter ordered 8 units of Novolog. Novolog given per order. Verbal report given to GI EMMA Corrigan and patient transported via stretcher for endoscopy.
--- NOTE | 2025-02-09 09:44 | PTCARENOTE ---
Patient AOx3. VSS. On RA with SpO2 greater than 92%. Q4 orthostatic VS completed per order. IVF running per order. Call meng within reach, bed in lowest position, and bed of wheels locked.
[2025-02-09 09:55] LABS: Glucose - Point of Care 293 mg/dl (70-99)
--- NOTE | 2025-02-09 11:13 | PTCARENOTE ---
Patient arrived back to IMU from endoscopy. Patient slid from stretcher to bed. IVF running. VSS. Care ongoing.
--- NOTE | 2025-02-09 11:54 | CM ---
Patient with Hx alcoholic liver disease with Dx GI bleed. Room air. Receiving IVF, IV Abx. MSAS 2 per nursing. Per nurse; requires assist of 1.
Met with patient who resides with his SO Champ in a 2 story house.
The patient was independent in ADLs and ambulation.
His only DME is CPAP that he is not using.
No prior VN or SNF.
PCP - Lico Kinney
Pharmacy updated to [facility] per patient request
CM Consult: Advanced Directive
Provided form
CM Consult: Substance Abuse
Offered [facility] and patient agrees to speak with them re; programs or resources.
Spoke with VIOLA Alvarez; she will speak with patient today.
Plan follow up with VIOLA.
[2025-02-09 12:07] LABS: Glucose - Point of Care 243 mg/dl (70-99)
[2025-02-09] MEDS: SANDOSTATIN 500.6 MCG IV (12:21)
[2025-02-09] MEDS: NOVOLOG FLEXPEN-LOW RESISTANCE 2 UNITS SC (12:22)
[2025-02-09] MEDS: NOVOLOG FLEXPEN SC ×2 (12:22→17:24)
--- NOTE | 2025-02-09 12:35 | PTCARENOTE ---
Assumed care of patient. Assessment completed and documented in shift assessment.
Patient is AAOx4, pleasant and cooperative. SR on monitor. Octreotide, Protonix and LR gtt infusing appropriately through R Hand and L Wrist IV. No edema, + pulses. RA, CTA. Round abdomen, + BS. No BM reported, no nausea. NPO. Orthostatic BP's
completed, patient + for orthostatics. Asymptomatic. Voids appropriately in urinal, skin intact.
[2025-02-09] MEDS: CRESTOR 5 MG PO (17:24)
[2025-02-09 17:42] LABS: Glucose - Point of Care 193 mg/dl (70-99)
[2025-02-09] MEDS: NOVOLOG FLEXPEN-LOW RESISTANCE 1 UNITS SC (18:11)
[2025-02-09] MEDS: THIAMINE INJECTION 200 MG IV (19:44)
--- NOTE | 2025-02-09 21:03 | PTCARENOTE ---
Caring for pt overnight. aaox3, pleasant. Denies pain. Denies any alcohol withdrawal symptoms, MSAS per protocol. VSS. NSR BBB on monitor. Remains RA. OOB to BR & BSC. IVF sandostatin & protonic gtt running. Remains NPO with sips of clears until
further orders. No bleeding per rectum or mouth. Will monitor.
[2025-02-09] MEDS: ROCEPHIN 1000 MG IV (21:11)
[2025-02-09] MEDS: STERILE WATER FOR INJECTION 10 ML IV (21:11)
[2025-02-10] VITALS (29 sets, daily range): BP systolic 108–137; BP diastolic 76–95
[2025-02-10 00:01] LABS: Glucose - Point of Care 173 mg/dl (70-99)
[2025-02-10] MEDS: NOVOLOG FLEXPEN-LOW RESISTANCE 3 UNITS SC ×2 (00:15→17:47)
[2025-02-10] MEDS: SANDOSTATIN 500.6 MCG IV ×2 (00:15→11:22)
[2025-02-10] MEDS: PROTONIX 100 IV ×3 (02:58→21:03)
[2025-02-10] MEDS: LR 1000 IV (04:53)
[2025-02-10] MEDS: NOVOLOG FLEXPEN-LOW RESISTANCE 1 UNITS SC ×2 (04:56→08:04)
[2025-02-10 05:07] LABS: Glucose - Point of Care 159 mg/dl (70-99)
[2025-02-10 05:13] LABS: Hematocrit 25.8 % (39.0-52.0); Hemoglobin 8.8 g/dL (13.0-18.0); Mean Corp Hgb Conc. 34.1 g/dL (33.0-37.0); Mean Corpuscular Volume 87.2 fL (80.0-94.0); Platelet Count 92 10^3/uL (130-400); Red Cell Dist. Width 16.3 % (11.5-14.5)
[2025-02-10 05:17] LABS: INR 1.26; PT 16.1 Sec (11.4-14.6)
[2025-02-10 05:25] LABS: ALT (SGPT) 83 U/L (0-50); AST (SGOT) 103 U/L (17-59); Albumin 3.2 g/dl (3.5-5.0); Alkaline Phosphatase 40 U/L (38-126); Blood Urea Nitrogen 15 mg/dl (9-20); Calcium 8.1 mg/dl (8.4-10.2); Carbon Dioxide 24 mmol/L (22-30); Chloride 111 mmol/L (98-107); Estimated Creatinine Clearance 108 ml/min; Glucose 152 mg/dl (70-99); Magnesium 1.5 mg/dl (1.6-2.3); Potassium 3.6 mmol/L (3.5-5.1); Sodium 137 mmol/L (135-145); Total Protein 5.7 g/dl (6.3-8.2); eGFR > 60.00
[2025-02-10 07:54] LABS: Glucose - Point of Care 162 mg/dl (70-99)
[2025-02-10] MEDS: NOVOLOG FLEXPEN 5 UNITS SC ×3 (08:03→17:47)
[2025-02-10] MEDS: THIAMINE INJECTION 200 MG IV (08:05)
[2025-02-10] MEDS: CORGARD 40 MG PO (08:05)
[2025-02-10] MEDS: MAGNESIUM SULFATE 50 IV (08:05)
[2025-02-10] MEDS: FOLVITE 1 MG PO (08:06)
[2025-02-10] MEDS: LANTUS 0.1 UNITS SC (08:33)
[2025-02-10] MEDS: KCL 270 MEQ IV (08:33)
[2025-02-10] MEDS: BIKTARVY 50-200-25 MG TABLET 1 TABLET PO (08:34)
--- NOTE | 2025-02-10 09:32 | W.PN.HOSP.TC ---
Today's Communication/Plan
-
see A/P
Assessment / Plan
Assessment / Plan
HPI: 59-year-old with history of alcoholic liver disease, history of varices status post banding x 2, hypertension, insulin-dependent diabetes, hyperlipidemia, and HIV; p/w concern for GI bleeding.
Patient reported sudden onset of nausea, then saw black tarry stools. He vomited a second time and thought it was bloody.
He continued to have black tarry stools.
Reported dizziness and lightheadedness. Melena noted in ED.
He denies any NSAID use, blood thinners etc.
Patient reports that he drinks alcohol (a glass of wine 4x/wk) with his last drink on Sunday.
A/P:
# GI bleed- HD stable
# cirrhosis with varices
# transaminitis due to above
s/p EGD 02/09: noted Grade II esophageal varices. Completely eradicated, Banded. Gastritis.
Cont PPI gtt x72 hours, Octreotide gtt x 72 hours, Rocephin x 7 days
Cont APPEALS AND GENERALIST CLERK Nadolol
Repeat EGD in 4 weeks to assess for eradication
Counselled on alcohol cessation. [facility] on board.
Cont to hold APPEALS AND GENERALIST CLERK HCTZ and lisinopril (BP stable)
Follow AFP
On full liquid, diet to be advanced by GI
# Hypomagnesemia
replete
Other med problems:
# HIV on bitarvy, cont
# hep B no meds- last labs neg
# DEV
# Hyperlipidemia on statin
# HTN
Cont to hold APPEALS AND GENERALIST CLERK HCTZ and lisinopril (BP stable)
Cont Nadolol
# IDDM
Cont Lantus 10 units (APPEALS AND GENERALIST CLERK 12 units HS) and aspart 5 units AC (APPEALS AND GENERALIST CLERK 7 units AC)
Cover with ISS
# Alcohol drinking
Counselled on alcohol cessation
monitor for withdrawal
MSAS protocol
DVT ppx: SCD
CODE STATUS�full code
DW RN
Anticipated Discharge: 24 - 48 hours
Subjective/Interval History
-
Date of Service: February 10, 2025
Objective Data
-
Labs:
Laboratory Results
02/10/25
04:55
WBC 2.9 L
Hgb 8.8 L
Hct 25.8 L
Plt Count 92 L
PT 16.1 H
INR 1.26
Sodium 137
Potassium 3.6
Chloride 111 H
Carbon Dioxide 24
BUN 15
Creatinine 0.8
Glucose 152 H
Calcium 8.1 L
Total Bilirubin 0.8
AST 103 H
ALT 83 H
Alkaline Phosphatase 40
Vital Signs:
Vital Signs
Temp Pulse Resp BP Pulse Ox
36.9 C 81 12 136/95 98
02/10/25 07:05 02/10/25 08:00 02/10/25 08:00 02/10/25 08:00 02/10/25 08:00
I&O
02/09/25 02/10/25 02/11/25
06:59 06:59 06:59
Intake Total 455 / 455
Output Total 600 / 600 1675 / 1675
Balance -145 / -145 -1675 / -1675
Review of Systems
-
History Source: Patient
All other systems: Reviewed and negative
Physical Exam
-
General: Well Developed, Well Nourished, No Apparent Distress, Comfortable and Conversant
HEENT: Normocephalic and Atraumatic
Respiratory: Clear to Auscultation and Non Labored Respirations; Negative Wheezes or Accessory Resp Muscle Use
Cardiac: Regular Rhythm and S1/S2
GI: Soft, Nontender, Nondistended and Normal Bowel Sounds
Musculoskeletal: No Edema
Neuro: Awake, Alert and AO x 3
Psych: Calm and Intact Judgement/Insight
Data Reviewed
-
Medical Tests (Nuc Med, Echo etc): Report Reviewed by me (EGD)
Labs: Labs Reviewed by me
--- NOTE | 2025-02-10 09:47 | CM ---
Patient with Hx alcoholic liver disease with Dx GI bleed. Room air. Full liquids. Receiving IV Octrotide, IV Abx. MSAS 1 per nursing.
Message from nurse Isabelle: He's good on his feet. Has been mostly bedbound. Is able to get out of bed without assist. Only needs assistance because of all his wires/lines.
Received phone message from VIOLA Murillo; he met with the patient who is in recovery from crack cocaine and sober since 1999. Patient receptive to resources for Etoh use- given resources (unspecified) to attend IOP/intensive outpatient program.
Plan home with outpatient substance abuse program resources.
--- NOTE | 2025-02-10 11:08 | W.PN.GI.CBS2 ---
Today's Communication / Plan
-
Repeat hgb this afternoon, if stable, will advance to regular diet. Continue PPI gtt, octreotide gtt and abx
Assessment / Plan
-
58 yo M pmh hep B (not on meds thought via sexual transmission with prior hep B core +, s AG/AB neg and VL<10 in 2021 and neg hep B core, S AB/ag, DNA neg in 2023) HIV (on Bitarvy follows with ID), DEV, hyperlipidemia, HTN, regular EtOH use(1 drink
3-4 days per week) with ETOH cirrhosis and prior EV bleeding/MW tear with banding on Nadolol.Pt has seen Dr. Hilton at [facility] several years ago and Dr. Zimmerman but admits to some compliance issues with follow up and last visit in August
canceled. Pt has had multiple EGD in past 3 years with concern for EV with banding, julien and last EGD 04/[address] Zimmerman with Plaques in esophagus MARTIN +, normal esophagus and stomach. He now presents with onset of hematemesis and Melana
with hbg 10.9 on admission. Pt also with uncontrolled FBS, HTN, and tachycardia on admission.
-hematemesis/black stools with concern for recurrent EV bleeding
- anemia
-tachycardia
-HTN
-ETOH cirrhosis with continued ETOH use
-DM with marked elevated FBS on admission
-hx prior julien
other med problems:
-HIV on bitarvy
-hep B no meds- last labs neg
-DEV
-hyperlipidemia on statin
-HTN
-family hx colon cA neg cologuard 2021
s/p EGD on 02/09, 1 column of grade 2 varices, banded x1. Small amounts of hematin in stomach. No gastric varices.
PLAN:
-s/p EGD on 02/09, hemoglobin 8.8 today, BUN down to 15 without any overt signs of GI bleeding since EGD
-c/w octreotide gtt, ppi gtt x72 hours
-Abx x7 days
-Full liquids, will advance tonight if afternoon Hgb stable
-will need repeat EGD in 4 weeks to assess for variceal eradication with Dr. Zimmerman
-HCC screening q6 months; AFP pending. Needs imaging
MELD 3.0 - 10 on admission labs
Need OP follow up with ID with HIV and hep B history
pt should consider colonoscopy with family hx colon CA instead of cologuard screening
Subjective
Subjective
Date of Service: February 10, 2025
Patient seen in follow-up. No overnight events. Small amount of hematin in stomach on EGD, 1 column of grade 2 varices were found on EGD, banded. Hgb dropped to 8.8 today, likely we did not see the hemoglobin reflective of his bleed yesterday. No BM
since admitted, last one in ER. He feels well.
Objective
Data Reviewed
Laboratory Data:
Laboratory Results
02/10/25 04:55
02/10/25 04:55
Laboratory Results
PT 16.1 Sec (11.4-14.6) H 02/10/25 04:55
INR 1.26 02/10/25 04:55
APTT 29.5 Sec (23.4-35.0) 02/08/25 22:05
Magnesium 1.5 mg/dl (1.6-2.3) L 02/10/25 04:55
Total Bilirubin 0.8 mg/dl (0.2-1.3) 02/10/25 04:55
AST 103 U/L (17-59) H 02/10/25 04:55
ALT 83 U/L (0-50) H 02/10/25 04:55
Alkaline Phosphatase 40 U/L (38-126) 02/10/25 04:55
Vital Signs and I&O:
Vital Signs
Temp Pulse Resp BP Pulse Ox
98.5 F 78 11 108/76 94
02/10/25 07:05 02/10/25 11:00 02/10/25 11:00 02/10/25 11:00 02/10/25 11:00
I&O
02/09/25 02/10/25 02/11/25
06:59 06:59 06:59
Intake Total 455 / 455
Output Total 600 / 600 1675 / 1675
Balance -145 / -145 -1675 / -1675
Physical Exam
Physical Exam
HEENT: Anicteric and Moist mucous membranes
GI: Soft, Non Distended, Non Tender and Normal Bowel Sounds
--- NOTE | 2025-02-10 11:29 | PTCARENOTE ---
Assumed care of patient at 0645. Assessment completed and documented in nursing shift assessment on Worklist.
Patient is AAOx4, pleasant and cooperative. AGUILAR, follows commands appropriately. No pain reported. On RA, diminished lung gerard throughout. Coarse bilateral bases. SR on monitor. No edema, + pulses. Vitals stable. R Hand and L Wrist IV patent,
infusing LR/Octreotide/Protonix gtt. Notified covering provider about hypomagnesemia on labs. Round abdomen, + BS. No BM today, passing flatus. Per GI, to advance to full liquids today. Voiding yellow/straw urine in urinal. Skin intact.
For repeat CBC in afternoon, potential liberation to regular diet if Hgb stable per GI.
[2025-02-10] MEDS: NOVOLOG FLEXPEN-LOW RESISTANCE 2 UNITS SC (12:27)
[2025-02-10 12:36] LABS: Glucose - Point of Care 205 mg/dl (70-99)
[2025-02-10 14:06] LABS: Hematocrit 20.4 % (39.0-52.0); Hemoglobin 7.0 g/dL (13.0-18.0); Mean Corp Hgb Conc. 34.3 g/dL (33.0-37.0); Mean Corpuscular Volume 87.9 fL (80.0-94.0); Platelet Count 72 10^3/uL (130-400); Red Cell Dist. Width 16.1 % (11.5-14.5)
--- NOTE | 2025-02-10 14:15 | PTCARENOTE ---
Critical Lab reporting on repeat CBC (WBC 2.0, Hct 20.4). Also Plts 72, Hgb 7.0. Notified both covering provider Dr. Cotter and Dr. Stearns. 1 Unit of PRBC to be given to patient per hospitalist.
[2025-02-10 15:09] LABS: AFP Male/Tumor Marker 4.37 ng/ml
[2025-02-10] MEDS: CRESTOR 5 MG PO (17:47)
[2025-02-10 17:54] LABS: Glucose - Point of Care 251 mg/dl (70-99)
[2025-02-10 20:59] LABS: Glucose - Point of Care 185 mg/dl (70-99)
[2025-02-10] MEDS: VITAMIN B1 100 MG PO (21:43)
[2025-02-10] MEDS: STERILE WATER FOR INJECTION 10 ML IV (21:43)
[2025-02-10] MEDS: ROCEPHIN 1000 MG IV (21:43)
[2025-02-11] VITALS (9 sets, daily range): BP systolic 106–150; BP diastolic 75–97
[2025-02-11] MEDS: SANDOSTATIN 500.6 MCG IV (01:03)
[2025-02-11 06:29] LABS: Hematocrit 29.7 % (39.0-52.0); Hemoglobin 10.1 g/dL (13.0-18.0); Mean Corp Hgb Conc. 34.0 g/dL (33.0-37.0); Mean Corpuscular Volume 86.6 fL (80.0-94.0); Platelet Count 88 10^3/uL (130-400); Red Cell Dist. Width 16.3 % (11.5-14.5)
[2025-02-11] MEDS: PROTONIX 100 IV (06:31)
--- NOTE | 2025-02-11 06:40 | PTCARENOTE ---
No acute changes overnight. NSR telemetry. Denies any pain. No gi/gu complaints; No BM. Protonix & Octreotide gtt continue per the MAR. Repositions self in bed. NPO for abdominal US this morning.
[2025-02-11 06:48] LABS: ALT (SGPT) 107 U/L (0-50); AST (SGOT) 107 U/L (17-59); Albumin 3.3 g/dl (3.5-5.0); Alkaline Phosphatase 43 U/L (38-126); Blood Urea Nitrogen 7 mg/dl (9-20); Calcium 8.1 mg/dl (8.4-10.2); Carbon Dioxide 22 mmol/L (22-30); Chloride 111 mmol/L (98-107); Estimated Creatinine Clearance 123 ml/min; Glucose 154 mg/dl (70-99); Magnesium 2.0 mg/dl (1.6-2.3); Potassium 4.0 mmol/L (3.5-5.1); Sodium 136 mmol/L (135-145); Total Protein 5.9 g/dl (6.3-8.2); eGFR > 60.00
--- NOTE | 2025-02-11 07:34 | PN.CDI ---
CDI
- -
CDI:
Physician Documentation Request
Admit Date: 02/08/25 23:44
Dear Doctor Cyndee,
Please review the following and provide your response in the progress notes.
Clinical Indicators:
Laboratory Tests
02/10/25 02/10/25 02/11/25
04:55 13:31 06:09
WBC 2.9 L 2.2 L* 3.8 L
RBC 2.96 L 2.32 L 3.43 L
Plt Count 92 L 72 L D 88 L D
Based on the above and your clinical assessment, please clarify in the progress notes, the appropriate diagnosis, if significant, that supports the above abnormalities and additional evaluation, monitoring and/or treatment rendered:
Pancytopenia
Drug-induced pancytopenia
Abnormal lab values, clinically insignificant
Other(please specify)
Use of terms such as suspected, likely, concern for, or probable (associated with a specific diagnosis that is being evaluated, monitored, or treated as if it exists) are acceptable and can be coded in the inpatient setting, when documented at the
time of discharge.
Thank you,
Willa Mcdaniels RN BSN CCDS
CDI Specialist
Please contact via tiger text
Please use your independent medical judgment in providing your response.
--- NOTE | 2025-02-11 07:38 | PN.CDI ---
CDI
- -
CDI:
Physician Documentation Request
Admit Date: 02/08/25 23:44
Dear Doctor Cyndee,
Please review the following and provide your response in the progress notes.
Clinical Indicators:
GI consult, 02/09
#-hematemesis/black stools with concern for recurrent EV bleeding
#...- anemia
Laboratory Tests
02/08/25 02/09/25 02/10/25
21:45 03:16 04:55
Hgb 10.9 L 10.2 L 8.8 L
02/10/25 02/11/25
13:31 06:09
Hgb 7.0 L D 10.1 L D
#7/6 Transfusion PRBC, 1 unit
Based on the above and your clinical assessment, please clarify the most likely type of anemia evaluated, monitored and/or treated?
Acute blood loss anemia with baseline chronic anemia (Specify type)
Anemia of chronic disease - indicate if neoplastic disease, CKD or other
Chronic iron deficiency anemia due to blood loss
Other(please specify)
Use of terms such as suspected, likely, concern for, or probable (associated with a specific diagnosis that is being evaluated, monitored, or treated as if it exists) are acceptable and can be coded in the inpatient setting, when documented at the
time of discharge.
Thank you,
Willa Mcdaniels RN BSN CCDS
CDI Specialist
Please contact via tiger text
Please use your independent medical judgment in providing your response.
--- NOTE | 2025-02-11 08:01 | W.PN.HOSP.TC ---
Addendum entered and electronically signed by Lexy Cotter MD 02/11/25 12:19:
# Pancytopenia, likely due to myelosuppression from chronic alcohol drinking
# Acute blood loss anemia with baseline chronic normocytic anemia
Original Note:
Today's Communication/Plan
-
see A/P
Assessment / Plan
Assessment / Plan
HPI: 59-year-old with history of alcoholic liver disease, history of varices status post banding x 2, hypertension, insulin-dependent diabetes, hyperlipidemia, and HIV; p/w concern for GI bleeding.
Patient reported sudden onset of nausea, then saw black tarry stools. He vomited a second time and thought it was bloody.
He continued to have black tarry stools.
Reported dizziness and lightheadedness. Melena noted in ED.
He denies any NSAID use, blood thinners etc.
Patient reports that he drinks alcohol (a glass of wine 4x/wk) with his last drink on Sunday.
A/P:
# GI bleed 2/2 esophageal varices
# cirrhosis with varices
# transaminitis due to above
s/p EGD 02/09: noted Grade II esophageal varices. Completely eradicated, Banded. Gastritis.
Cont PPI gtt x72 hours, Octreotide gtt x 72 hours, Rocephin x 7 days
Cont BALANCING MACHINE OPERATOR Nadolol
Repeat EGD in 4 weeks to assess for eradication
Counselled on alcohol cessation. [facility] on board.
Cont to hold BALANCING MACHINE OPERATOR HCTZ and lisinopril (BP stable)
AFP WNL at 4.37
On full liquid, diet to be advanced by GI
s/p 1 unit PRBC transfusion on 02/10 for Hgb 7.0, Hgb improved to 10.1 today, cont to trend Hgb
# Hypomagnesemia
repleted
Other med problems:
# HIV on bitarvy, cont
# hep B no meds- last labs neg
# DEV
# Hyperlipidemia on statin
# HTN
Cont to hold BALANCING MACHINE OPERATOR HCTZ and lisinopril (BP stable)
Cont Nadolol
# IDDM
Cont Lantus 10 units (BALANCING MACHINE OPERATOR 12 units HS) and aspart 5 units AC (BALANCING MACHINE OPERATOR 7 units AC)
Cover with ISS
# Alcohol drinking
Counselled on alcohol cessation
monitor for withdrawal
MSAS protocol
DVT ppx: SCD
CODE STATUS�full code
DW RN
DW GI team
Anticipated Discharge: Within 24 hours
Subjective/Interval History
-
Date of Service: February 11, 2025
Objective Data
-
Labs:
Laboratory Results
02/11/25
06:09
WBC 3.8 L
Hgb 10.1 L D
Hct 29.7 L
Plt Count 88 L D
Sodium 136
Potassium 4.0
Chloride 111 H
Carbon Dioxide 22
BUN 7 L
Creatinine 0.7
Glucose 154 H
Calcium 8.1 L
Total Bilirubin 0.8
AST 107 H
ALT 107 H
Alkaline Phosphatase 43
Vital Signs:
Vital Signs
Temp Pulse Resp BP Pulse Ox
37.1 C 75 10 138/90 96
02/11/25 03:00 02/11/25 06:00 02/11/25 06:00 02/11/25 06:00 02/11/25 06:00
I&O
02/10/25 02/11/25 02/12/25
06:59 06:59 06:59
Intake Total 250 / 250
Output Total 1675 / 1675 3250 / 3250
Balance -1675 / -1675 -3000 / -3000
Review of Systems
-
History Source: Patient
All other systems: Reviewed and negative
Physical Exam
-
General: Well Developed, Well Nourished, No Apparent Distress, Comfortable and Conversant
HEENT: Normocephalic and Atraumatic
Respiratory: Clear to Auscultation and Non Labored Respirations; Negative Wheezes or Accessory Resp Muscle Use
Cardiac: Regular Rhythm and S1/S2
GI: Soft, Nontender, Nondistended and Normal Bowel Sounds
Musculoskeletal: No Edema
Neuro: Awake, Alert and AO x 3
Psych: Calm and Intact Judgement/Insight
Data Reviewed
-
Medical Tests (Nuc Med, Echo etc): Report Reviewed by me (EGD)
Labs: Labs Reviewed by me
[2025-02-11 08:56] LABS: Glucose - Point of Care 174 mg/dl (70-99)
[2025-02-11] MEDS: CORGARD 40 MG PO (09:11)
[2025-02-11] MEDS: FOLVITE 1 MG PO (09:12)
[2025-02-11] MEDS: VITAMIN B1 100 MG PO ×2 (09:12→20:19)
[2025-02-11] MEDS: LANTUS 0.1 UNITS SC (09:13)
[2025-02-11] MEDS: NOVOLOG FLEXPEN-LOW RESISTANCE 1 UNITS SC ×2 (09:13→17:15)
[2025-02-11] MEDS: NOVOLOG FLEXPEN 5 UNITS SC (09:13)
[2025-02-11] MEDS: BIKTARVY 50-200-25 MG TABLET 1 TABLET PO (10:11)
--- NOTE | 2025-02-11 11:33 | W.PN.GI.CBS2 ---
Addendum entered and electronically signed by Mayra Stearns DO 02/11/25 12:31:
The patient was seen and examined by me independently in collaboration with the nurse practitioner.
Past medical history/social history/medications/allergies/family history reviewed.
Lab data and imaging data reviewed.
Suspect hgb of 7 yesterday was lab error, given repeat today was 10.1 and no evidence of ongoing GI bleeding. Patient has remained hemodynamically stable, feels well.
Plan:
-c/w octreotide gtt and ppi gtt x72 hours, to be completed later today; then PO PPI once daily
-abx x 7 days
-okay to advance diet
-AFP 4.33, abdominal US shows cirrhosis and fatty liver, no focal hepatic lesions; needs HCC surveillance q6 months
-outpatient EGD with Dr. Zimmerman in 4 weeks to assess for variceal eradication
GI will sign off, please call with questions
Original Note:
Today's Communication / Plan
-
no signs of recurrent bleeding feeling well last stool 02/08 -- anticipate stool with be dark
hbg stable -8.8--7--10.1
-c/w octreotide gtt, ppi gtt x72 hours started 01/09 will stop after current bag completed later today
-Abx x7 days
-advance to regular diet with HS ensure
-will need repeat EGD in 4 weeks to assess for variceal eradication with Dr. Zimmerman-- I sent message to Dr. Zimmerman to arrange timing for follow up
-HCC screening q6 months; AFP 4.33 , US completed today as noted no masses -- sent message for office follow up after EGD and discuss colonoscopy
MELD 3.0 - 10 on admission labs
Need OP follow up with ID with HIV and hep B history
pt should consider colonoscopy with family hx colon CA instead of cologuard screening
Assessment / Plan
-
58 yo M pmh hep B (not on meds thought via sexual transmission with prior hep B core +, s AG/AB neg and VL<10 in 2021 and neg hep B core, S AB/ag, DNA neg in 2023) HIV (on Bitarvy follows with ID), DEV, hyperlipidemia, HTN, regular EtOH use(1 drink
3-4 days per week) with ETOH cirrhosis and prior EV bleeding/MW tear with banding on Nadolol.Pt has seen Dr. Hilton at [facility] several years ago and Dr. Zimmerman but admits to some compliance issues with follow up and last visit in August
canceled. Pt has had multiple EGD in past 3 years with concern for EV with banding, julien and last EGD 04/[address] Zimmerman with Plaques in esophagus MARTIN +, normal esophagus and stomach. He now presents with onset of hematemesis and Melana
with hbg 10.9 on admission. Pt also with uncontrolled FBS, HTN, and tachycardia on admission. s/p EGD wtih banding as noted.
02/10 US abd with doppler
Abdominal duplex evaluation is within normal limits.
Normal appearance of the gallbladder with no evidence for biliary ductal dilation.
Nodular external contour of the liver compatible with history of cirrhosis. No evidence for a focal hepatic mass lesion.
Increased echogenicity of the liver, suggesting fatty infiltration and/or hepatocellular disease.
Simple cyst arising in the lower pole the right kidney.
-hematemesis/black stools recurrent EV bleeding with banding 02/09
- anemia
-tachycardia
-HTN
-ETOH cirrhosis with continued ETOH use
-DM with marked elevated FBS on admission
-hx prior julien
other med problems:
-HIV on bitarvy
-hep B no meds- last labs neg
-DEV
-hyperlipidemia on statin
-HTN
-family hx colon cA neg cologuard 2021
s/p EGD on 02/09, 1 column of grade 2 varices, banded x1. Small amounts of hematin in stomach. No gastric varices.
PLAN:
no signs of recurrent bleeding feeling well last stool 02/08 -- anticipate stool with be dark
hbg stable -8.8--7--10.1
-c/w octreotide gtt, ppi gtt x72 hours started 01/09 will stop after current bag completed later today
-Abx x7 days
-advance to regular diet with HS ensure
-will need repeat EGD in 4 weeks to assess for variceal eradication with Dr. Zimmerman-- I sent message to Dr. Zimmerman to arrange timing for follow up
-HCC screening q6 months; AFP 4.33 , US completed today as noted no masses -- sent message for office follow up after EGD and discuss colonoscopy
MELD 3.0 - 10 on admission labs
Need OP follow up with ID with HIV and hep B history
pt should consider colonoscopy with family hx colon CA instead of cologuard screening
Subjective
Subjective
Date of Service: February 11, 2025
last stool 02/08 on full liquid diet
Objective
Data Reviewed
Laboratory Data:
Laboratory Results
02/11/25 06:09
02/11/25 06:09
Laboratory Results
PT 16.1 Sec (11.4-14.6) H 02/10/25 04:55
INR 1.26 02/10/25 04:55
APTT 29.5 Sec (23.4-35.0) 02/08/25 22:05
Magnesium 2.0 mg/dl (1.6-2.3) 02/11/25 06:09
Total Bilirubin 0.8 mg/dl (0.2-1.3) 02/11/25 06:09
AST 107 U/L (17-59) H 02/11/25 06:09
ALT 107 U/L (0-50) H 02/11/25 06:09
Alkaline Phosphatase 43 U/L (38-126) 02/11/25 06:09
Vital Signs and I&O:
Vital Signs
Temp Pulse Resp BP Pulse Ox
98.7 F 75 10 138/90 96
02/11/25 03:00 07/09/25 06:00 02/11/25 06:00 02/11/25 06:00 02/11/25 06:00
I&O
02/10/25 02/11/25 02/12/25
06:59 06:59 06:59
Intake Total 250 / 250
Output Total 1675 / 1675 3250 / 3250
Balance -1675 / -1675 -3000 / -3000
Physical Exam
Physical Exam
HEENT: Anicteric and Moist mucous membranes
Cardiology: Normal Sinus Rhythm
Pulmonary: Clear
GI: Soft, Non Distended and Non Tender
Extremities: No Edema
Neuro: Non Focal
[2025-02-11 12:42] LABS: Glucose - Point of Care 209 mg/dl (70-99)
[2025-02-11] MEDS: SANDOSTATIN IV (12:44)
[2025-02-11] MEDS: NOVOLOG FLEXPEN SC (12:45)
[2025-02-11] MEDS: NOVOLOG FLEXPEN 7 UNITS SC ×2 (13:08→17:15)
[2025-02-11] MEDS: NOVOLOG FLEXPEN-LOW RESISTANCE 2 UNITS SC (13:08)
[2025-02-11] MEDS: CRESTOR 5 MG PO (17:24)
[2025-02-11 17:30] LABS: Glucose - Point of Care 161 mg/dl (70-99)
[2025-02-11 21:37] LABS: Glucose - Point of Care 197 mg/dl (70-99)
[2025-02-11] MEDS: ROCEPHIN 1000 MG IV (21:38)
[2025-02-11] MEDS: STERILE WATER FOR INJECTION 10 ML IV (21:38)
[2025-02-12] VITALS: BP 125/76
[2025-02-12 02:00] VITALS: BP 126/84
--- NOTE | 2025-02-12 02:51 | PTCARENOTE ---
Pt pleasant, cooperative, denies complaints. Pt able to ambulate to bathroom independently. NSR on CM. Able to make needs known. Care ongoing.
[2025-02-12 04:00] VITALS: BP 125/91
[2025-02-12 05:03] LABS: Hematocrit 29.1 % (39.0-52.0); Hemoglobin 9.9 g/dL (13.0-18.0); Mean Corp Hgb Conc. 34.0 g/dL (33.0-37.0); Mean Corpuscular Volume 86.4 fL (80.0-94.0); Platelet Count 94 10^3/uL (130-400); Red Cell Dist. Width 16.3 % (11.5-14.5)
[2025-02-12 05:27] LABS: ALT (SGPT) 88 U/L (0-50); AST (SGOT) 71 U/L (17-59); Albumin 3.4 g/dl (3.5-5.0); Alkaline Phosphatase 57 U/L (38-126); Blood Urea Nitrogen 7 mg/dl (9-20); Calcium 8.1 mg/dl (8.4-10.2); Carbon Dioxide 23 mmol/L (22-30); Chloride 111 mmol/L (98-107); Estimated Creatinine Clearance 123 ml/min; Glucose 127 mg/dl (70-99); Potassium 3.6 mmol/L (3.5-5.1); Sodium 138 mmol/L (135-145); Total Protein 6.2 g/dl (6.3-8.2); eGFR > 60.00
[2025-02-12 06:00] VITALS: BP 102/75
[2025-02-12 06:59] LABS: Glucose - Point of Care 132 mg/dl (70-99)
[2025-02-12] MEDS: NOVOLOG FLEXPEN-LOW RESISTANCE SC (07:22)
[2025-02-12 07:25] VITALS: BP 119/79
[2025-02-12] MEDS: VITAMIN B1 100 MG PO (07:25)
[2025-02-12] MEDS: NOVOLOG FLEXPEN 7 UNITS SC (07:25)
[2025-02-12] MEDS: LANTUS 0.12 UNITS SC (07:25)
[2025-02-12] MEDS: CORGARD 40 MG PO (07:26)
[2025-02-12] MEDS: FOLVITE 1 MG PO (07:26)
[2025-02-12 08:00] VITALS: BP 139/84
--- NOTE | 2025-02-12 09:08 | W.PN.HOSP.TC ---
Addendum entered and electronically signed by Lexy Cotter MD 02/12/25 14:20:
total DC time 37 min
Original Note:
Today's Communication/Plan
-
see A/P
Assessment / Plan
Assessment / Plan
HPI: 59-year-old with history of alcoholic liver disease, history of varices status post banding x 2, hypertension, insulin-dependent diabetes, hyperlipidemia, and HIV; p/w concern for GI bleeding.
Patient reported sudden onset of nausea, then saw black tarry stools. He vomited a second time and thought it was bloody.
He continued to have black tarry stools.
Reported dizziness and lightheadedness. Melena noted in ED.
He denies any NSAID use, blood thinners etc.
Patient reports that he drinks alcohol (a glass of wine 4x/wk) with his last drink on Sunday.
A/P:
# GI bleed 2/2 esophageal varices
# cirrhosis with varices
# transaminitis due to above
s/p EGD 02/09: noted Grade II esophageal varices. Completely eradicated, Banded. Gastritis.
s/p PPI gtt x72 hours, Octreotide gtt x 72 hours,
Rocephin -> Levaquin/Flagyl for 3 more days (total 7 days)
Cont RAIL MANAGER Nadolol
Repeat EGD in 4 weeks to assess for eradication
Counselled on alcohol cessation. [facility] on board.
Cont to hold RAIL MANAGER HCTZ and lisinopril (BP stable)
AFP WNL at 4.37
advanced to solid food and pt tolerated well
s/p 1 unit PRBC transfusion on 02/10 for Hgb 7.0, Hgb improved to 10.1 today, cont to trend Hgb
Monitor LFT outpt
# Hypomagnesemia
repleted
Other med problems:
# HIV on bitarvy, cont
# hep B no meds- last labs neg
# DEV
# Hyperlipidemia on statin
# HTN
Cont to hold RAIL MANAGER HCTZ and lisinopril (BP stable)
Cont Nadolol
# IDDM
Cont RAIL MANAGER Lantus at 12 units and aspart 7 units AC
Cover with ISS
# Alcohol drinking
Counselled on alcohol cessation
monitor for withdrawal
MSAS protocol
DVT ppx: SCD
CODE STATUS�full code
DW RN
Anticipated Discharge: Today
Subjective/Interval History
-
Date of Service: February 12, 2025
Objective Data
-
Labs:
Laboratory Results
02/12/25
04:47
WBC 4.9
Hgb 9.9 L
Hct 29.1 L
Plt Count 94 L
Sodium 138
Potassium 3.6
Chloride 111 H
Carbon Dioxide 23
BUN 7 L
Creatinine 0.7
Glucose 127 H
Calcium 8.1 L
Total Bilirubin 0.5
AST 71 H
ALT 88 H
Alkaline Phosphatase 57
Vital Signs:
Vital Signs
Temp Pulse Resp BP Pulse Ox
37.1 C 70 10 102/75 97
02/12/25 07:26 02/12/25 06:00 02/11/25 06:00 02/12/25 06:00 02/11/25 22:35
I&O
02/11/25 02/12/25 02/13/25
06:59 06:59 06:59
Intake Total 250 / 250
Output Total 3250 / 3250 900 / 900
Balance -3000 / -3000 -900 / -900
Review of Systems
-
History Source: Patient
All other systems: Reviewed and negative
Physical Exam
-
General: Well Developed, Well Nourished, No Apparent Distress, Comfortable and Conversant
HEENT: Normocephalic and Atraumatic
Respiratory: Clear to Auscultation and Non Labored Respirations; Negative Wheezes or Accessory Resp Muscle Use
Cardiac: Regular Rhythm and S1/S2
GI: Soft, Nontender, Nondistended and Normal Bowel Sounds
Musculoskeletal: No Edema
Neuro: Awake, Alert and AO x 3
Psych: Calm and Intact Judgement/Insight
Data Reviewed
-
Medical Tests (Nuc Med, Echo etc): Report Reviewed by me (EGD)
Labs: Labs Reviewed by me
[2025-02-12] MEDS: BIKTARVY 50-200-25 MG TABLET 1 TABLET PO (09:20)
[2025-02-12] MEDS: KCL 40 MEQ PO (09:20)
[2025-02-12] MEDS: PROTONIX 40 MG PO (09:25)
--- NOTE | 2025-02-12 09:37 | PTCARENOTE ---
Patient refused bowel regimen ordered by MD. Dr. Cotter made aware. OK to still discharge patient per Dr. Cotter. Care ongoing.
--- NOTE | 2025-02-12 09:42 | PTCARENOTE ---
Patient AOx3. VSS. NSR with BBB on monitor. Independent in room. Patient tolerating diet. Call meng within reach, bed in lowest position, and bed of wheels locked.
--- NOTE | 2025-02-12 10:17 | PTCARENOTE ---
D/C packet reviewed with patient. All questions answered and patient verbalized understanding. IV's removed.
--- NOTE | 2025-02-12 12:41 | CM ---
Patient discharged to home
Chidi from [facility] had given resources for outpatient etoh
PLAN: home with outpatient substance abuse program resources.
--- NOTE | 2025-02-12 14:13 | W.DCSUMMARY ---
Discharge Summary
Discharge Data
Date of Admission: 02/08/25
Date of Discharge: 02/12/25
-
Pending Results: No
Hospital Course
Principal Diagnosis:
# GI bleed 2/2 esophageal varices
# Alcoholic cirrhosis with varices status post banding x 2 prior to admission
# transaminitis due to above
Chronic Diagnoses:�
# HIV on bitarvy, cont
# hep B, not on meds
# DEV
# Hyperlipidemia on statin
# HTN, stopped HCTZ and lisinopril this admission (BP stable), continue Nadolol alone
# IDDM
# Alcohol drinking
Consultations:�
Gastroenterology
Procedures:�
EGD 02/09: noted Grade II esophageal varices. Completely eradicated, Banded. Gastritis.
Clinical course:�
This is a 59-year-old with past medical history as stated above, who presented with black tarry stools.
He admitted to drinking alcohol 1 glass/day.
Problem 1:
GI bleed 2/2 esophageal varices.
Of note, patient has history of alcoholic cirrhosis with varices status post banding x 2 prior to admission.
His LFT was also noted to be elevated, likely due to above.
He underwent EGD on 02/09: which noted grade II esophageal varices that was completely eradicated and banded, and gastritis.
While in the hospital, the patient received PPI gtt x72 hours, Octreotide gtt x 72 hours, and IV antibiotic Rocephin.
He was discharged with oral Levaquin/Flagyl for 3 more days (total 7 days of antibiotic for SBP prophylaxis in setting of variceal bleed)
He can continue with prior to admission Nadolol.
He has been informed to repeat EGD in 4 weeks to assess for eradication of his esophageal varices.
His prior to admission HCTZ and lisinopril were held and his BP has been stable on nadolol alone.
Of note, he did receive 1 unit PRBC transfusion on 02/10 for Hgb at 7.0 at that time. His Hgb improved to 10.1.
He can check follow-up LFT with result to his PCP.
As for the rest of his medical problems, they were stable during his hospital stay.
Discharge Plan
-
Patient Disposition: Home (Routine Discharge)
Discharge Diagnosis/Procedures: # GI bleed due to esophageal varices (status post banding from EGD on 02/09)
# Gastritis.
# cirrhosis with varices
# transaminitis due to above
Condition: Good
Diet: As tolerated
Activity: As tolerated
Driving Restrictions: As prior to admission
Blood Work: CBC and CMP in 1 week, result to PCP
Activity Restrictions/Additional Instructions:
Avoid drinking alcohol.
Repeat EGD with Dr. Zimmerman in 4 weeks to assess for eradication of varices.
Follow up with GI for HCC surveillance every months
Referrals:
Anny Zimmerman MD [Active, Gastroenterology]
Referral Note: call to arrange OP follow up and repeat banding in [address] Zimmerman
UNKNOWN - PT DOES,NOT KNOW [Family Provider] - in less than 1 week
Katya Walters MD [Active, Infectious Diseases]
Referral Note: ID continued follow with hx HIV
Additional Discharge Medication Instructions: Stop HCTZ and lisinopril (your blood pressure has been stable)
Continue Levaquin/Flagyl for 3 more days.
Continue protonix 40 mg daily going forward.
Prescriptions:
New
pantoprazole 40 mg Tablet,Delayed Release (Dr/Ec)
40 mg PO DAILY Qty: 30 0RF
levofloxacin 750 mg tablet
750 mg PO DAILY 3 Days Qty: 3 0RF
metronidazole 500 mg tablet
500 mg PO Q8H 3 Days Qty: 9 0RF
Continued
insulin glargine [Lantus Solostar U-100 Insulin] 100 unit/mL (3 mL) Insulin Pen
12 unit SC HS Qty: 5 0RF
insulin lispro 100 unit/mL Insulin Pen
7 sliding scale dose SC AC
nadolol 20 mg tablet
40 mg PO DAILY Qty: 30 0RF
rosuvastatin 5 mg Tablet
5 mg PO QPM Qty: 30 0RF
Biktarvy 50-200-25 mg tablet
1 tab PO DAILY Qty: 30 0RF
famotidine 20 mg Tablet
20 mg PO DAILY
Discontinued
lisinopril 10 mg Tablet
10 mg PO DAILY Qty: 30 0RF
hydrochlorothiazide 25 mg Tablet
25 mg PO DAILY Qty: 30 0RF
Discharge Orders:
Discharge Patient (As Directed); Ordered 02/12/25
Ordered By: Lexy Cotter
Discharge Date and Time
Discharge Date/Time: 02/12/25 10:26
Print Language: [email or web address]
== END 2025-02-12 10:26 | disposition home or self-care (01) | DRG 432 ==
LOC: IMU 23:44
PROVIDERS: Nurse Practitioner Adult Health; Physician Assistant Medical; ADMITTING PHYSICIAN Internal Medicine; ATTENDING PHYSICIAN Internal Medicine; CONSULT PHYSICIAN Internal Medicine; EMERGENCY PHYSICIAN Emergency Medicine
PROC: 06L38CZ Occlusion of Esophageal Vein with Extraluminal Device, Via Natural or Artificial Opening Endoscopic (ICD-10-PCS; 2025-02-09)
PROC: 30233N1 Transfusion of Nonautologous Red Blood Cells into Peripheral Vein, Percutaneous Approach (ICD-10-PCS; 2025-02-10)
DX: K70.30 Alcoholic cirrhosis of liver without ascites (principal); I85.11 Secondary esophageal varices with bleeding; B18.1 Chronic viral hepatitis B without delta-agent; D61.818 Other pancytopenia; D62 Acute posthemorrhagic anemia; K76.6 Portal hypertension; I10 Essential (primary) hypertension; E11.65 Type 2 diabetes mellitus with hyperglycemia; I45.10 Unspecified right bundle-branch block; F17.200 Nicotine dependence, unspecified, uncomplicated; F14.11 Cocaine abuse, in remission; G47.33 Obstructive sleep apnea (adult) (pediatric); K31.89 Other diseases of stomach and duodenum; E83.42 Hypomagnesemia; K76.0 Fatty (change of) liver, not elsewhere classified; F10.10 Alcohol abuse, uncomplicated; E78.00 Pure hypercholesterolemia, unspecified; K29.70 Gastritis, unspecified, without bleeding; Z21 Asymptomatic human immunodeficiency virus [HIV] infection status; Z86.19 Personal history of other infectious and parasitic diseases; Z91.199 Patient's noncompliance with other medical treatment and regimen due to unspecified reason; Z80.0 Family history of malignant neoplasm of digestive organs; Z80.42 Family history of malignant neoplasm of prostate; Z88.6 Allergy status to analgesic agent; Z88.0 Allergy status to penicillin; Z79.4 Long term (current) use of insulin; Z87.19 Personal history of other diseases of the digestive system
CPT/HCPCS: 76700; 80048; 80053; 82077; 82105; 82962; 83735; 85025; 85027; 85610; 85730; 86850; 86900; 86901; 86920; 93005; 93975; 96361; 96374; 96375; 99291; 99406; P9016